=== PATIENT | female | born 1975 | race Caucasian/White ===

== ENCOUNTER → 2021-01-18 16:50 | Outpatient (BNVA) | payer OTHER, SELFPAY | PROVIDERS: Visit Provider Emergency Medicine | DX: J02.9 Acute pharyngitis, unspecified (principal); J06.9 Acute upper respiratory infection, unspecified; Z20.818 Contact with and (suspected) exposure to other bacterial communicable diseases | CPT/HCPCS: 87071; 87880 ==

== ENCOUNTER → 2021-01-19 12:12 | Outpatient (BNVA) | payer OTHER, SELFPAY | PROVIDERS: Visit Provider Emergency Medicine | DX: Z20.822 Contact with and (suspected) exposure to COVID-19 (principal) | CPT/HCPCS: 87635 ==

== ENCOUNTER 2024-08-27 14:12 | Oncology outpatient (recurring) (ONCR) | payer OTHER, SELFPAY ==
[2024-08-17 09:08] LABS: Basophils # 0.1 10^3/uL (0.0-0.1); Basophils % 0.7 %; Eosinophils # 0.2 10^3/uL (0.0-0.8); Eosinophils % 2.2 %; Hematocrit 34.8 % (36-47); Lymphocytes # 2.8 10^3/uL (0.8-4.8); Lymphocytes % 37.7 %; Mean Corpuscular HGB Conc 34.2 g/dL (30-55); Mean Corpuscular Hemoglobin 29.1 pg (27-33); Mean Corpuscular Volume 85.1 fl (85-98); Mean Platelet Volume 8.4 fL (7.4-10.4); Monocytes # 0.5 10^3/uL (0.2-0.9); Monocytes % 6.3 %; Neutrophils # 3.89 10^3/uL (1.8-7.7); Neutrophils % 52.8 %; Nucleated Red Blood Cells % 0 %; Platelet Count 274 10^3/cmm (157-399); Red Blood Count 4.09 10^6/uL (3.85-5.65); Red Cell Distribution Width 13.4 % (12.1-15.1); White Blood Count 7.35 10^3/uL (3.29-11.43)
[2024-08-17 09:30] LABS: Alanine Aminotransferase 18 U/L (0-33); Alkaline Phosphatase 87 U/L (35-105); Anion Gap 17.4 (5-19); Aspartate Amino Transferase 17 U/L (0-32); Blood Urea Nitrogen 12 mg/dL (6-20); Calcium 10.7 mg/dL (8.5-10.5); Carbon Dioxide 22 mmol/L (22-29); Chloride 98 mmol/L (98-107); Creatinine Clr Calc Pharmacy 247.3607; Globulin 2.6 g/dL (1.3-4.6); Glomerular Filtration Rate 170.4 mL/min (90-130); Glucose 210 mg/dL (65-115); Lactate Dehydrogenase 95 U/L (135-214); Osmolality Calculated 282 mOsm/kg (285-295); Potassium 4.4 mmol/L (3.5-5.1); Sodium 133 mmol/L (136-145); Total Bilirubin 0.4 mg/dL (0.15-1.2); Total Protein 6.6 g/dL (6.6-8.7); Uric Acid 7.4 mg/dL (2.4-5.7)
--- NOTE | 2024-08-21 11:30 | PETR_ITS ---
PROCEDURE INFORMATION: Exam: PET/CT Whole Body Exam date and time: 08/21/2024 12:26 PM Age: 49 years old Clinical indication: Condition or disease; Primary cancer: Melanoma; Additional info: Melanoma, Dr. Gooden would like this done by 08/21/24 LABS AND CLINICAL REPORTS: Glucose: 158 mg/dl Treatment strategy for malignancy (PET staging): Initial Staging (PI) TECHNIQUE: Imaging protocol: Following at least four-hour fasting and following the injection of radiopharmaceutical, low dose CT images were obtained. Then, PET images were obtained. Attenuation corrected images were constructed using the CT scan. Fused images of PET and CT were reviewed. The standardized uptake values (SUV) reported below are maximum values within a region of interest, expressed in gm/ml. Exam includes the whole body. SUV normalization method: BodyWeight Radiopharmaceutical: 12 mCi F-18 FDG (Fluorodeoxyglucose), IV. Time of imaging post radiopharmaceutical administration: 58 minutes Injection site: left ac COMPARISON: No relevant prior studies available. FINDINGS: Brain: Visualized brain has normal physiologic uptake. Pharynx: No abnormal uptake. Larynx: No abnormal uptake. Lungs, pleura and trachea: No abnormal uptake. Heart: Normal physiologic uptake. Mediastinal space: No abnormal uptake. Liver: No abnormal uptake. Enlarged, measuring 28 cm in craniocaudal dimension. Mild relative diffuse hypoattenuation with subtle sparing adjacent to the gallbladder fossa. Gallbladder and biliary ducts: No abnormal uptake. Prior cholecystectomy. Pancreas: No abnormal uptake. Spleen: No abnormal uptake. Splenomegaly measures up to 15 cm. Adrenal glands: No abnormal uptake. Kidneys and ureters: Normal physiologic uptake. Stomach and bowel: Diffuse FDG uptake along the ileum and ascending colon without underlying CT abnormality is likely benign physiologic or inflammatory. There is also FDG avid segmental thickening along the anus and rectum. Reproductive: Left ovary/adnexa appears asymmetrically enlarged (non FDG avid), although difficult to distinguish from closely apposed adjacent small bowel which is also non FDG avid. Vasculature: No abnormal uptake. Mild systemic atherosclerotic calcification without aortic aneurysm. Mild pulmonary arterial dilatation. Venous varicosities along bilateral thighs. Lymph nodes: Enlarged FDG avid right inguinal lymph node measures 4.5 x 3.3 cm on axial image 289 and shows SUV max 19.7. Skeleton: No suspicious abnormal uptake in the visualized axial and appendicular skeleton. Mild left glenohumeral joint periarticular uptake is likely inflammatory. Soft tissues: Mild body wall edema. Bilateral lower extremity subcutaneous edema greatest at the lateral lower right calf. METRICS: Mediastinal blood pool: SUV mean 1.4 Liver uptake: SUV mean 2.1 PET/PET WB melanoma INITIAL 60726 IMPRESSION: 1. FDG avid enlarged right inguinal lymph node suspicious for malignancy. 2. Hepatosplenomegaly with suggested hepatic steatosis. Correlate with laboratory values. 3. FDG avid segmental thickening along the anus and rectum. This could be physiologic or proctitis, malignancy not excluded. 4. Left ovary/adnexa appears asymmetrically enlarged (non FDG avid), although difficult to be entirely certain given inability to distinguish from closely apposed adjacent small bowel which is also non FDG avid. Consider pelvic ultrasound. 5. Mild pulmonary arterial dilatation may be seen in the setting of pulmonary hypertension. 6. Additional chronic and incidental findings as above.
== END 2024-09-02 23:59 | disposition home or self-care (01) ==
PROVIDERS: PCP Nurse Practitioner Family; Visit Provider Internal Medicine
DX: Z53.9 Procedure and treatment not carried out, unspecified reason (principal)
CPT/HCPCS: 36415; 78816; 80053; 83615; 84550; 85025; A9552

== ENCOUNTER 2024-09-10 05:57 | Day surgery (SDC) | payer OTHER, SELFPAY ==
[2024-09-10] VITALS (11 sets, daily range): BP systolic 139–160; BP diastolic 62–84; PULSE 72–85; RESP 16–18; TEMP 36.3–36.9; O2SAT 92–97; BMI 48.6
--- NOTE | 2024-09-10 06:03 | P.ANESASSM_ITS ---
Pre-Anesthetic Assessment Height/Weight: Height 5 ft 6 in Preop Diagnosis: Malignant melanoma Operation Date: 09/10/24 07:00 Proposed Procedures p wide local excision right leg melanoma [id number], 48356, C43.71(Right) - Lexx Stanton MD s Excision Lymph Node Lower Extremity Inguinal Lymph Node Dissection(Right) - Lexx Stanton MD Was Beta Sapna taken within 24 hours: Yes Was Clonidine taken within 24 hours: N/A Social No alcohol and No tobacco Exam alert, oriented x 3, clear to auscultation bilaterally and regular rate & rhythm Airway Cervical ROM: within normal limits Mallampati: Class III Comments: Comments: Patient is edentulous, large neck circumference Anesthetic Plan ASA status: 3 Anesthesia: General Other: No prior issues with anesthesia NPO since yesterday evening Patient has a history of type 2 diabetes, no insulin BMI 48 Hypertension on labetalol Patient has malignant melanoma. Hepatosplenomegaly noted on PET/CT scan last m [facility] Labs reviewed from and acceptable for procedure. NA 133 at that time. Plan for general anesthesia Medications/Allergies Home Medications ?Medication ?Instructions ?Recorded ?Confirmed ?Last Taken ?Type metformin 1,000 mg tablet 1,000 mg PO BID 06/11/2012/2809/08/24 11:30 History glimepiride 4 mg tablet 4 mg PO DAILY 01/18/2109/1009/08/24 11:30 History labetalol 100 mg tablet 100 mg PO BID 01/18/2109/1009/10/24 04:00 History mupirocin 2 % topical ointment topical 08/17/2409/08/24 11:30 History simvastatin 40 mg tablet mg PO 08/17/24 08/31/2410/28 11:30 History Allergies Allergy/AdvReac Type Severity Reaction Status Date / Time No Known Allergies Allergy Verified 09/10/24 06:07 [facility] Anesthesia Medical History Hypertension Type 2 diabetes mellitus Family History Sister Breast cancer FH: kidney cancer Skin cancer Thyroid cancer Stroke Father Cancer kidney Mother Leukemia Social History (Updated 08/31/24 @ 10:48 by EVER Mars) Alcohol intake: never Substance/Drug Use: never Female Reproductive History Date of last menstrual period: 09/04/24
[2024-09-10 06:22] LABS: Glucose Point of Care 215 mg/dL (70-110)
[2024-09-10] MEDS: sodium chloride 0.9% 1,000 ML 30 ML IV (06:24)
[2024-09-10 06:28] LABS: OR HCG Qualitative Urine Negative (Negative)
--- NOTE | 2024-09-10 07:04 | P.HPUD_ITS ---
Surgery/Procedure H&P Update DATE OF PROCEDURE: September 10, 2024 DATE H&P PERFORMED: 08/31/24 H&P UPDATE INFORMATION: I have reviewed H&P completed within last 30 days, I have examined patient prior to procedure and Changes to prior documentation as noted here CHANGES TO PREVIOUS DOCUMENTATION: Right ankle cellulitis noticed on Saturday. Per patient no change since then. Patient still wants to proceed with surgery with the understanding this i ncreases her risk of surgical site infection. Will prescribe 7 days of antibiotics after surgery. PREOP DIAGNOSIS: Malignant melanoma PLANNED PROCEDURE: Operation Date: 09/10/24 07:00 Proposed Procedures p wide local excision right leg melanoma [id number], 35659, C43.71(Right) - Lexx Stanton MD s Excision Lymph Node Lower Extremity Inguinal Lymph Node Dissection(Right) - Lexx Stanton MD
[2024-09-10] MEDS: ceFAZolin 3,000 MG in sodium chloride 0.9% (plus) 100 ML 200 MG IV (07:07)
[2024-09-10] MEDS: lidocaine-epi 1% 20 mL INJ 6 ML INJECTION (07:45)
[2024-09-10] MEDS: BUPivacaine 0.5% INJ 30 mL 6 ML INJECTION (07:45)
--- NOTE | 2024-09-10 08:47 | XR_ITS ---
WS: [id number] XR femur RT 1V [id number] REASON FOR EXAM: SURGICAL COUNTS FINDINGS: Surgical drain overlies the proximal right femur. No metallic foreign body identified. XR/XR femur RT 1V [id number] IMPRESSION: No metallic foreign body.
--- NOTE | 2024-09-10 09:06 | P.BOP_ITS ---
Date of Procedure: 09/10/2024 Surgeon: Dr. [facility] Consultant(s): DAMIAN Procedure(s) performed: wide local excision of right calf melanoma down to fascial layer with 1cm margins, inguinal lymph node dissection (superficial and deep). Findings of the procedure(s): 09/21/2019 Estimated blood loss: 50cc Specimen(s) removed: right calf melanoma (status post shave biopsy) wide local excision, right inguinal lymph nodes sent to pathology Post-operative diagnosis: melanoma
--- NOTE | 2024-09-10 09:16 | PM.OP ---
Operative Report Date of procedure: September 10, 2024 Pre-op diagnosis: Right calf melanoma (10mm Breslow thickness with ulceration) status post shave biopsy. Post-op diagnosis: same Post-op findings: Wide local excision of right calf melanoma down to fascial layer with 1cm margins, inguinal lymph node dissection (superficial and deep). Multiple enlarged and indurated inguinal lymph nodes. Procedure done: Wide local excision of right calf melanoma down to fascial layer with 1cm margins, inguinal lymph node dissection (superficial and deep). Implants: NA Specimens removed/disposition: Wide local excision of right calf melanoma down to fascial layer with 1cm margins, inguinal lymph node dissection (superficial and deep). Pathology: Wide local excision of right calf melanoma down to fascial layer with 1cm margins, inguinal lymph node dissection (superficial and deep). Both sent to pathology. Surgeon: Lexx Stanton MD Bank Manager: DAMIAN Anesthesia: MAC Estimated blood loss (mL): 50 Complications: NA Findings: Wide local excision of right calf melanoma down to fascial layer with 1cm margins, inguinal lymph node dissection (superficial and deep). Multiple enlarged and indurated inguinal lymph nodes. Condition: stable Disposition: same day Brief History: 49 yo female who had a right calf melanoma managed by Dermatology with shave biopsy. Pathology demonstrated a 10mm Breslow thickness melanoma with ulceration. On exam, patient has clinically indurated right inguinal lymph nodes FDG avid on PET scan. Discussed risks and benefits and patient agree to proceed to the operating room for wide local excision of right calf melanoma and right inguinal lymph node dissection. Procedure: Consent obtained in the preop area. Right calf lesion and right inguinal nodes marked in preop area with patient's input. Patient brought to OR. Prophylactic antibiotics were administered. MAC induced. Patient positioned supine. The entire right lower extremity and groin was prepped and draped in the usual sterile fashion. To perform the wide local excision, the patient's right knee was flexed in frog leg position. I measured and marked 1cm margins radially at the site of the shave biopsy. Skin was incised using a scalpel. Infiltration using 10cc of 1% lidocaine and 0.5% bupivacaine with epinephrine was done. Electrocautery was used to dissect down to the fascial layer. The specimen was then resected and passed off to be sent to pathology. Electrocautery was used to obtain adequate hemostasis. Roger's layer was closed using interruped 3-0 vicryl. Deep dermal layer was closed using 2-0 vicryl in a running fashion. Multiple 2-0 nylon sutures in vertical mattress fashion were placed to close the epidermis. The knee was then straightened and my attention focused on the groin. Infiltration using 10cc of 1% lidocaine and 0.5% bupivacaine with epinephrine was done. A 6cm vertical incision 4cm distal to the inguinal ligament was carried out with a scalpel. Electrocautery was used to dissect down to the Roger's fascia. Roger's was transected and I proceeded to excise any palpable lymph node along the inguinal ligament. I dissected down to the indurated pack of nodes located right at the junction between the right common femoral vein and the saphenous vein. I was able to dissect out the pack of indurated nodes using electrocautery. I also inspected the space medial to the right common femoral vein and excised all palpable nodes. The specimen for the right inguinal lymph node dissection was then passed off and sent to pathology. I then washed out the wound using 1L NS and confirmed adequate hemostasis. Roger's fascia was closed using running 3-0 vicryl on top of a 10F Thiago drain. Deep dermal layer was closed using 2-0 vicryl in a running fashion. Epidermis was closed using 2-0 nylon in a vertical mattress fashion as well as multiple simple stitches. A sterile dressing was applied to the right groin and the right calf.
[2024-09-10] MEDS: ondansetron 2 mg/ML SDV 2 mL 4 MG IVP (09:24)
[2024-09-10] MEDS: ondansetron 2 mg/ML SDV 2 mL 4 MG (09:57)
--- NOTE | 2024-09-10 11:02 | PC.NURSE ---
[place] drain verbal and written educations were given to pt.s daughter in law who is a tennis racket repairer. [id number] then emptied 10ml of fluid from drain.
--- NOTE | 2024-09-10 11:13 | ANE.PACU2 ---
Inpatient post-anesthesia follow up: Airway intact: Yes Vital signs: Temperature 98.4 F Pulse Rate 81 Respiratory Rate 17 Blood Pressure 139/63 Pulse Oximetry 95 Oxygen Delivery Me thod Nasal Cannula Oxygen Flow Rate 2 Fraction of Inspir ed Oxygen Hydration adequate: Yes Nausea and vomiting: No Pain level: 1 Mental status: Baseline
== END 2024-09-10 11:14 | disposition home or self-care (01) ==
PROVIDERS: Student in an Organized Health Care Education/Training Program; PCP Nurse Practitioner Family; Visit Provider Student in an Organized Health Care Education/Training Program
PROC: (CPT 38531; principal; 2024-09-10 07:00)
PROC: (CPT 38531; 2024-09-10 07:00)
DX: C43.71 Malignant melanoma of right lower limb, including hip (principal); C77.4 Secondary and unspecified malignant neoplasm of inguinal and lower limb lymph nodes; I10 Essential (primary) hypertension; E11.9 Type 2 diabetes mellitus without complications; Z79.899 Other long term (current) drug therapy; Z79.84 Long term (current) use of oral hypoglycemic drugs
CPT/HCPCS: 38531; 27619; 36416; 73551; 74018; 81025; 82962; 88184; 88185; 88304; 88305; 88342; J0690; J1100; J2250; J2405; J2704; J3010; J3490; J7030; J9999

== ENCOUNTER 2024-09-19 12:59 | Emergency (ER) | payer OTHER, SELFPAY ==
[2024-09-19 13:11] VITALS: BP 143/72; PULSE 86; RESP 16; TEMP 36.6; O2SAT 97; BMI 49.9
--- NOTE | 2024-09-19 15:14 | W.ED.GENADLT ---
HPI - General Adult General: Chief complaint: General Medical Stated complaint: [place] drain leaking Time Seen by Provider: 09/19/24 14:45 History of Present Illness: 49-year-old female presents to the emergency room with leakage around the drain that was placed in the groin after a inguinal lymph node dissection. Original surgery was done on September 10 9 days ago. Drain had been draining well until recently now is draining around the drain. Associated symptoms: Deny chest pain, dyspnea or rash Related Data Home Medications ?Medication ?Instructions ?Recorded ?Confirmed metformin 1,000 mg tablet 1,000 mg PO BID 06/11/20 09/19/24 glimepiride 4 mg tablet 4 mg PO DAILY 01/18/21 09/19/24 labetalol 100 mg tablet 100 mg PO BID 01/18/21 09/19/24 simvastatin 40 mg tablet 40 mg PO DAILY 08/17/24 09/19/24 acetaminophen 500 mg tablet 1,000 mg PO QID PRN Fever Or Pain 09/19/24 09/19/24 (Tylenol Extra Strength) ibuprofen 200 mg tablet (Advil) 600 mg PO Q6H PRN Fever Or Pain 09/19/24 09/19/24 mupirocin 2 % topical ointment See Rx Instructions .Route .COMPLEX 09/19/24 09/19/24 Allergies Allergy/AdvReac Type Severity Reaction Status Date / Time No Known Allergies Allergy Verified 09/10/24 06:07 Review of Systems Const: Denies: fever(s) or chills Card: Denies: chest pain Resp: Denies: dyspnea GI: Denies: abdominal pain : Denies: dysuria, urinary frequency or urinary urgency Musc: Denies: neck pain or back pain Skin/Breast: Denies: rash PFSH ED PFSH: Medical History Hypertension Type 2 diabetes mellitus Family History Sister Breast cancer FH: kidney cancer Skin cancer Thyroid cancer Stroke Father Cancer kidney Mother Leukemia Social History Alcohol intake: never Substance/Drug Use: never Physical Exam Const: GENERAL APPEARANCE: cooperative ORIENTATION/CONSCIOUSNESS: Yes awake, Yes oriented to person, Yes oriented to place and Yes oriented to time HENMT: COMMON NORMALS: normocephalic, atraumatic and hearing grossly normal bilaterally HEAD & SCALP: normocephalic and atraumatic GI: COMMON NORMALS: Soft to palpation and No hepatosplenomegaly present AUSCULTATION: Yes normoactive bowel sounds PALPATION: Yes Soft to palpation, No Tenderness to palpation present (GI), No Guarding due to palpation present (GI) and Yes No hepatosplenomegaly present Extremity: COMMON NORMALS: normal to inspection, capillary refill normal, no clubbing, cyanosis or edema, no calf tenderness and no pedal edema Neuro: SENSORIUM/ORIENTATION: Yes oriented to person, Yes oriented to place and Yes oriented to time Skin: COMMON NORMALS: no rashes or lesions noted GENERAL SKIN EXAM: no rashes or lesions noted OTHER: Incision site behind the knee and incision site in the groin both look good there is some minimal localized erythema but there is no sign of dehiscence no sign of induration or infection. Drainage in the [place] drain has significant amount of debris in it and serous fluid. Course Vital Signs: Vital signs: Vital Signs Temperature 97.9 F 09/19/24 13:11 Pulse Rate 89 09/19/24 16:18 Respiratory Rate 16 09/19/24 13:11 Blood Pressure 144/81 09/19/24 16:18 Pulse Oximetry 97 09/19/24 16:18 Oxygen Delivery Me thod Room Air 09/19/24 13:11 MDM - General Adult Medical Decision Making Quite a bit of debris in the tube exterior to the skin we stripped it out and got a sizable amount out however there is even more right at the entrance of the tube into the skin. Drains been in place for 9 days now basically she is plugging up with cellular debris we tried to suction it with a syringe were able to get a little bit more debris out of the fenestrated portion of the tube to where we could see it externally but could not get it to move got a little bit more of the serous fluid out there is no signs of purulence. The wound itself looked very good. Discussion with the patient we can leave it in place it still will drain some but suspect the reason it is leaking around the tube is that drain is no longer able to keep up with the serous fluid that is being produced. If we leave it and she will still have some serous drainage from around the tube the other option would be to just simply remove it. It is no longer functioning it has been in for 9 days is likely to continue to worsen. If it is removed it would drain more but least it would keep the fluid from building up inside of the surgical site. After we discussed with her and her daughter patient opted to have us remove it sutures removed the drain was pulled without any difficulty there was quite a bit of debris in the fenestrated portion of the drain. Some serosanguineous drainage from the wound immediately after pulling it. ABD was applied to absorb any drainage discussed with the family that whenever she moves she is likely to intermittently get significant amounts of fluid that will come out at 1 time rather than a continuous slow drainage. Follow-up with Dr. Stanton as planned. No radiology studies performed this visit Discharge Plan Discharge Patient Disposition: Home Clinical Impression: Draining postoperative wound Melanoma Qualifiers: Melanoma location: lower extremity including hip Laterality: right Qualified Code(s): C43.71 - Malignant melanoma of right lower limb, including hip Condition: Stable Prescriptions: No Action metformin 1,000 mg tablet 1,000 mg PO BID labetalol 100 mg tablet 100 mg PO BID glimepiride 4 mg tablet 4 mg PO DAILY simvastatin 40 mg tablet 40 mg PO DAILY mupirocin 2 % ointment See Rx Instructions .ROUTE .COMPLEX Rx Instructions: APPLY TOPICALLY TO AFFECTED AREA ON RIGHT LEG 1 TO 2 TIMES DAILY UNTIL HEALED acetaminophen [Tylenol Extra Strength] 500 mg Tablet 1,000 mg PO QID PRN (Reason: Fever Or Pain) ibuprofen [Advil] 200 mg Tablet 600 mg PO Q6H PRN (Reason: Fever Or Pain) Discharge Orders: Discharge ED (Routine); Ordered 09/19/24 Ordered By: Joe Barnard Referrals: Guera Hawk FNP [Primary Care Provider, Nurse Practitioner] Patient Instructions: Opioid Safety, Pain Management Activity Restrictions/Additional Instructions: Thank you for choosing [facility] for your healthcare needs today. It is very important that you follow up as instructed or that you return to the Emergency Department should you have concerns or if your condition changes or worsens in any way. You were seen in the emergency room with complaints of drainage from around the surgical site [place] drain. As we discussed the drain was clogged we made several attempts to get it opened up however there was significant after bradycardia inside the fenestrated portion did not appear to be likely to drain well anymore. After discussion we you had opted to have us remove it which we did without difficulty and the wound looks very good. Expect the wound to continue to drain at the site where the surgical drain was removed. Keep your appointment with Dr. Stanton as scheduled. Return to the emergency room if you have signs of infection or fever. Print Language: Slovenian Coding Level of Care Code ED Felt Cutting Machine Operator for Gretel Mccormack
[2024-09-19 15:15] VITALS: BP 162/80; PULSE 84; O2SAT 97
[2024-09-19 15:30] VITALS: BP 146/84; PULSE 91; O2SAT 97
[2024-09-19 16:18] VITALS: BP 144/81; PULSE 89; O2SAT 97
== END 2024-09-19 16:18 | disposition home or self-care (01) ==
PROVIDERS: Emergency Provider Family Medicine; PCP Nurse Practitioner Family
DX: T85.638A Leakage of other specified internal prosthetic devices, implants and grafts, initial encounter (principal); C43.71 Malignant melanoma of right lower limb, including hip; Z79.84 Long term (current) use of oral hypoglycemic drugs; E11.9 Type 2 diabetes mellitus without complications; I10 Essential (primary) hypertension; X58.XXXA Exposure to other specified factors, initial encounter
CPT/HCPCS: 99283

== ENCOUNTER 2024-10-01 13:05 | Oncology outpatient (recurring) (ONCR) | payer OTHER, SELFPAY ==
--- NOTE | 2024-09-16 08:30 | US_ITS ---
WS: [id number] US pelvic complete* [id number] HISTORY: left ovary mass COMPARISON: PET/CT 08/21/2024. Extremely limited evaluation of the pelvic structures due to body habitus. Uterus: 11.4 cm x 5.0 cm x 6.0 cm. Uterus appears slightly enlarged. Best seen on the transabdominal imaging. Very little detail within the myometrium is evident. There is a small amount of fluid along the cervical canal. Endometrium: 1.1 cm. Poorly visualized. Neither ovary is identified. No free fluid in the cul-de-sac. US/US pelvic complete* [id number] IMPRESSION: 1. Extremely difficult ultrasound evaluation of the pelvic structures. 2. Neither ovary is identified. 3. Endometrium not well visualized.
[2024-10-01 14:28] LABS: Basophils # 0.1 10^3/uL (0.0-0.1); Basophils % 0.6 %; Eosinophils # 0.2 10^3/uL (0.0-0.8); Eosinophils % 2.8 %; Hematocrit 34.8 % (36-47); Lymphocytes # 2.9 10^3/uL (0.8-4.8); Lymphocytes % 33.6 %; Mean Corpuscular HGB Conc 33.3 g/dL (30-55); Mean Corpuscular Hemoglobin 27.8 pg (27-33); Mean Corpuscular Volume 83.3 fl (85-98); Mean Platelet Volume 8.6 fL (7.4-10.4); Monocytes # 0.5 10^3/uL (0.2-0.9); Monocytes % 5.7 %; Neutrophils # 4.83 10^3/uL (1.8-7.7); Neutrophils % 56.9 %; Nucleated Red Blood Cells % 0 %; Platelet Count 300 10^3/cmm (157-399); Red Blood Count 4.18 10^6/uL (3.85-5.65); Red Cell Distribution Width 14.2 % (12.1-15.1); White Blood Count 8.48 10^3/uL (3.29-11.43)
[2024-10-01 14:44] LABS: Alanine Aminotransferase 14 U/L (0-33); Albumin Level 3.9 g/dL (3.5-5.2); Alkaline Phosphatase 95 U/L (35-105); Anion Gap 19.1 (5-19); Aspartate Amino Transferase 14 U/L (0-32); Blood Urea Nitrogen 11 mg/dL (6-20); Calcium 10.9 mg/dL (8.5-10.5); Carbon Dioxide 20 mmol/L (22-29); Chloride 98 mmol/L (98-107); Creatinine Clr Calc Pharmacy 194.4973; Glomerular Filtration Rate 131.7 mL/min (90-130); Glucose 208 mg/dL (65-115); Lactate Dehydrogenase 96 U/L (135-214); Magnesium 1.3 mg/dL (1.7-2.3); Osmolality Calculated 281 mOsm/kg (285-295); Potassium 4.1 mmol/L (3.5-5.1); Sodium 133 mmol/L (136-145); Total Bilirubin 0.3 mg/dL (0.15-1.2); Total Protein 6.9 g/dL (6.6-8.7); Uric Acid 6.5 mg/dL (2.4-5.7)
== END 2024-10-03 23:59 | disposition home or self-care (01) ==
PROVIDERS: PCP Nurse Practitioner Family; Visit Provider Internal Medicine
DX: C43.71 Malignant melanoma of right lower limb, including hip (principal)
CPT/HCPCS: 36415; 76856; 80053; 83615; 83735; 84550; 85025

== ENCOUNTER 2024-10-03 10:47 | Emergency (ER) | payer OTHER, SELFPAY ==
[2024-10-03 11:03] VITALS: BP 164/78; PULSE 91; RESP 18; TEMP 36.8; O2SAT 94
--- NOTE | 2024-10-03 11:15 | USR_ITS ---
PROCEDURE INFORMATION: Exam: US Duplex Right Lower Extremity Veins, Limited Exam date and time: 10/03/2024 12:26 PM Age: 49 years old Clinical indication: Pain; Leg, upper and leg, lower; Right; Prior surgery; Surgery date: <1 month; Surgery type: Skin cancer removal; Additional info: Pain, swelling TECHNIQUE: Imaging protocol: Real-time duplex ultrasound of the right extremity with 2-D estrada scale, color Doppler flow and spectral waveform analysis including responses to compression and other maneuvers (when performed) with image documentation. Limited exam was focused on the right lower extremity veins. COMPARISON: PT PET WB melanoma INITIAL [id number] 08/21/2024 12:26 PM FINDINGS: Right deep veins: Unremarkable. The common femoral, femoral, proximal profunda femoral and popliteal veins are patent without thrombus. Normal Doppler waveforms. Normal compressibility and/or augmentation response. Superficial veins: Greater saphenous vein at the saphenofemoral junction is patent without thrombus. Soft tissues: Complex collection with internal septations in the superior right thigh at the area of palpable lump measuring 6.7 x 4.1 x 6.4 cm. A similar-appearing complex collection with internal echoes is seen in the popliteal fossa at a surgical site which measures 5.8 x 4.9 x 5.0 cm. US/[place] [id number] IMPRESSION: 1. No evidence of deep vein thrombosis. 2. Complex collections in the superior right thigh and along the popliteal fossa may represent postsurgical hematomas. Consider short interval imaging follow-up to document improvement/resolution.
[2024-10-03 11:34] LABS: Basophils % 0.4 %; Eosinophils # 0.2 10^3/uL (0.0-0.8); Eosinophils % 2.3 %; Hematocrit 33.3 % (36-47); Lymphocytes # 1.7 10^3/uL (0.8-4.8); Lymphocytes % 18.5 %; Mean Corpuscular HGB Conc 34.2 g/dL (30-55); Mean Corpuscular Hemoglobin 27.7 pg (27-33); Mean Platelet Volume 8.8 fL (7.4-10.4); Monocytes # 0.7 10^3/uL (0.2-0.9); Monocytes % 7.7 %; Neutrophils % 70.8 %; Nucleated Red Blood Cells % 0 %; Platelet Count 274 10^3/cmm (157-399); Red Blood Count 4.11 10^6/uL (3.85-5.65); White Blood Count 9.33 10^3/uL (3.29-11.43)
[2024-10-03 11:53] LABS: Anion Gap 17.7 (5-19); Blood Urea Nitrogen 11 mg/dL (6-20); Calcium 10.6 mg/dL (8.5-10.5); Carbon Dioxide 23 mmol/L (22-29); Chloride 96 mmol/L (98-107); Glomerular Filtration Rate 131.7 mL/min (90-130); Glucose 328 mg/dL (65-115); Osmolality Calculated 286 mOsm/kg (285-295); Potassium 4.7 mmol/L (3.5-5.1); Sodium 132 mmol/L (136-145)
--- NOTE | 2024-10-03 13:09 | W.ED.EXTPRO ---
HPI - Extremity Problem General: Chief complaint: Extremity Problem,Nontraumatic Stated complaint: right knee incision drainage and pain Time Seen by Provider: 10/03/24 11:04 History of Present Illness: This patient is a 49-year-old white female who presents to the emergency department concerned about pain and swelling of post surgical sites on her right leg. Patient states she was diagnosed with melanoma stage III. She had the lesion removed from the right popliteal area on September [address] Stanton. She also had a lymph node resection in the right groin. She has noticed the popliteal wound has become red and draining clear fluid. She has not had a fever. No chest pain. Some mild dyspnea on exertion. She does have a history of [id number] diabetes, hypertension and hypercholesterolemia. She is concerned about diffuse swelling of the right leg as well. Related Data Home Medications ?Medication ?Instructions ?Recorded ?Confirmed metformin 1,000 mg tablet 1,000 mg PO BID 06/11/20 10/01/24 glimepiride 4 mg tablet 4 mg PO DAILY 01/18/21 10/01/24 labetalol 100 mg tablet 100 mg PO BID 01/18/21 10/01/24 simvastatin 40 mg tablet 40 mg PO DAILY 08/17/24 10/01/24 acetaminophen 500 mg tablet 1,000 mg PO QID PRN Fever Or Pain 09/19/24 10/01/24 (Tylenol Extra Strength) ibuprofen 200 mg tablet (Advil) 600 mg PO Q6H PRN Fever Or Pain 09/19/24 10/01/24 mupirocin 2 % topical ointment See Rx Instructions .Route .COMPLEX 09/19/24 10/01/24 oxycodone 5 mg tablet mg PO PRN 10/01/24 10/01/24 Previous Rx's ?Medication ?Instructions ?Recorded dabrafenib 75 mg capsule 150 mg (2 x 75 mg) PO BID #120 caps 10/01/24 trametinib 2 mg tablet (Mekinist) 2 mg PO DAILY #30 tabs 10/01/24 cephalexin 500 mg capsule 500 mg PO TID 10 days #30 caps 10/03/24 Allergies Allergy/AdvReac Type Severity Reaction Status Date / Time No Known Allergies Allergy Verified 10/01/24 13:11 Review of Systems General: Reports: 10 or more systems reviewed and unremarkable except in HPI and below Musc: Reports: extremity pain and extremity swelling PFSH ED PFSH: Medical History Hypertension Type 2 diabetes mellitus Family History Sister Breast cancer FH: kidney cancer Skin cancer Thyroid cancer Stroke Father Cancer kidney Mother Leukemia Social History Smoking and tobacco/nicotine status: never used tobacco/nicotine Alcohol intake: never Substance/Drug Use: never Physical Exam Const: COMMON NORMALS: no acute distress, patient oriented x3 and no limitations GENERAL APPEARANCE: cooperative and comfortable HENMT: COMMON NORMALS: normocephalic, atraumatic, Normal nasal mucous membranes and turbinates present, moist oral mucous membranes and oropharynx normal HEAD & SCALP: normal to inspection, normocephalic and atraumatic FACE & SINUS: normal facial exam NOSE: Normal nasal mucous membranes and turbinates present Eye: COMMON NORMALS: Equal, round and reactive pupils present, EOMs intact bilaterally and conjunctivae normal GENERAL EYE: appearance normal, both eyes and all related structures CONJUNCTIVA: Yes conjunctivae normal PUPIL: Yes Equal, round and reactive pupils present Neck/C-Spine: COMMON NORMALS: supple and no JVD Chest: COMMONS NORMALS: normal inspection of the chest Resp: COMMON NORMALS: normal respiratory effort and clear to auscultation bilaterally AUSCULTATION: clear to auscultation bilaterally Cardio: COMMON NORMALS: no JVD, regular rate, regular rhythm, No gallops present (Cardio), No murmurs present (Cardio) and No rub (Cardio) RATE: regular rate RHYTHM: regular rhythm GI: COMMON NORMALS: Normal to inspection, nondistended, normoactive bowel sounds present, Soft to palpation and non-tender AUSCULTATION: Yes normoactive bowel sounds PALPATION: Yes Soft to palpation : COMMON NORMALS: Yes no CVA tenderness BLADDER/KIDNEY EXAM: Yes no CVA tenderness Back/Pelvis: COMMON NORMALS: no CVA tenderness and thoracic and lumbar spine normal to inspection Extremity: NARRATIVE EXTREMITY EXAM: There is a surgical wound with sutures intact in the right popliteal fossa. The wound is erythematous. No drainage at this time. Neuro: COMMON NORMALS: patient oriented x3 and CN's II-XII intact bilaterally Psych: COMMON NORMALS: mental status grossly normal, Normal thought process present and cooperative THOUGHT PROCESS: Normal thought process present Skin: COMMON NORMALS: turgor normal and no jaundice GENERAL SKIN EXAM: turgor normal Course Vital Signs: Vital signs: Vital Signs Temperature 98.2 F 10/03/24 11:03 Pulse Rate 91 10/03/24 11:03 Respiratory Rate 18 10/03/24 11:03 Blood Pressure 164/78 10/03/24 11:03 Pulse Oximetry 94 10/03/24 11:03 Oxygen Delivery Me thod Room Air 10/03/24 11:03 MDM - Extremity (Nontraumatic) Medical Decision Making CBC was normal. BMP normal except for blood sugar of 328. Venous duplex of the right leg did not reveal a DVT. There are seromas present in the right popliteal and right groin. All results were discussed with the patient. I did place her on Keflex. Recommended she follow-up with her surgeon on Saturday as scheduled. She was discharged in stable condition. Lab Data 10/03/24 11:27 10/03/24 11:27 Laboratory Results WBC 9.33 10^3/uL (3.29-11.43) 10/03/24 11:27 RBC 4.11 10^6/uL (3.85-5.65) 10/03/24 11:27 Hgb 11.40 g/dL (11.27-16.99) 10/03/24 11:27 Hct 33.3 % (36-47) L 10/03/24 11:27 MCV 81.0 fl (85-98) L 10/03/24 11:27 MCH 27.7 pg (27-33) 10/03/24 11:27 MCHC 34.2 g/dL (30-55) 10/03/24 11:27 RDW 14.0 % (12.1-15.1) 10/03/24 11:27 Plt Count 274 10^3/cmm (157-399) 10/03/24 11:27 MPV 8.8 fL (7.4-10.4) 10/03/24 11:27 Neut % (Auto) 70.8 % 10/03/24 11:27 Lymph % (Auto) 18.5 % 10/03/24 11:27 Meeker % (Auto) 7.7 % 10/03/24 11:27 Eos % (Auto) 2.3 % 10/03/24 11:27 Baso % (Auto) 0.4 % 10/03/24 11:27 Neut # (Auto) 6.60 10^3/uL (1.8-7.7) 10/03/24 11:27 Lymph # (Auto) 1.7 10^3/uL (0.8-4.8) 10/03/24 11:27 Meeker # (Auto) 0.7 10^3/uL (0.2-0.9) 10/03/24 11:27 Eos # (Auto) 0.2 10^3/uL (0.0-0.8) 10/03/24 11:27 Baso # (Auto) 0.0 10^3/uL (0.0-0.1) 10/03/24 11:27 Nucleated RBC % (auto) 0 % 10/03/24 11:27 Nucleated RBCs # 0.0 /100WBC 10/03/24 11:27 Sodium 132 mmol/L (136-145) L 10/03/24 11:27 Potassium 4.7 mmol/L (3.5-5.1) 10/03/24 11:27 Chloride 96 mmol/L (98-107) L 10/03/24 11:27 Carbon Dioxide 23 mmol/L (22-29) 10/03/24 11:27 Anion Gap 17.7 (5-19) 10/03/24 11:27 BUN 11 mg/dL (6-20) 10/03/24 11:27 Creatinine 0.5 mg/dL (0.5-0.9) 10/03/24 11:27 GFR Calculation 131.7 mL/min (90-130) H 10/03/24 11:27 Glucose 328 mg/dL (65-115) H 10/03/24 11:27 Calculated Osmolality 286 mOsm/kg (285-295) 10/03/24 11:27 Calcium 10.6 mg/dL (8.5-10.5) H 10/03/24 11:27 All radiology interpretation(s) finalized by discharge Discharge Plan Discharge Patient Disposition: Home Clinical Impression: Seroma after procedure Cellulitis Qualifiers: Site of cellulitis: extremity Site of cellulitis of extremity: lower extremity Laterality: right Qualified Code(s): L03.115 - Cellulitis of right lower limb Condition: Stable Prescriptions: New cephalexin 500 mg capsule 500 mg PO TID 10 Days Qty: 30 0RF No Action metformin 1,000 mg tablet 1,000 mg PO BID labetalol 100 mg tablet 100 mg PO BID glimepiride 4 mg tablet 4 mg PO DAILY oxycodone 5 mg tablet PO PRN dabrafenib 75 mg capsule 150 mg PO BID Qty: 120 0RF Rx Instructions: administer approximately 12 hours apart Mekinist 2 mg tablet 2 mg PO DAILY Qty: 30 11RF Rx Instructions: must be taken on empty stomach, at least 1 hr before or 2-3 hrs after meal/food simvastatin 40 mg tablet 40 mg PO DAILY mupirocin 2 % ointment See Rx Instructions .ROUTE .COMPLEX Rx Instructions: APPLY TOPICALLY TO AFFECTED AREA ON RIGHT LEG 1 TO 2 TIMES DAILY UNTIL HEALED acetaminophen [Tylenol Extra Strength] 500 mg Tablet 1,000 mg PO QID PRN (Reason: Fever Or Pain) ibuprofen [Advil] 200 mg Tablet 600 mg PO Q6H PRN (Reason: Fever Or Pain) Discharge Orders: Discharge ED (Routine); Ordered 10/03/24 Ordered By: Jasper Patel Referrals: Guera Hawk FNP [Primary Care Provider, Nurse Practitioner] Patient Instructions: Wound Infection (ED) Activity Restrictions/Additional Instructions: Follow-up with your surgeon on Saturday as scheduled. Stand Alone Forms: Work/School Release Print Language: Georgian Coding Level of Care Code ED Platform Stapler for Gretel Mccormack
== END 2024-10-03 13:20 | disposition home or self-care (01) ==
PROVIDERS: Emergency Provider Emergency Medicine; PCP Nurse Practitioner Family
DX: L76.34 Postprocedural seroma of skin and subcutaneous tissue following other procedure (principal); L03.115 Cellulitis of right lower limb; E11.9 Type 2 diabetes mellitus without complications; I10 Essential (primary) hypertension; R60.0 Localized edema
CPT/HCPCS: 36415; 80048; 85025; 93971; 99284

== ENCOUNTER 2024-10-22 07:00 | Oncology outpatient (recurring) (ONCR) | payer SELFPAY ==
--- NOTE | 2024-10-12 15:50 | N.ONRAD NP_ITS ---
Radiation Oncology New Patient Visit Patient: Madeleine Gallagher MR#: [id number] : 1975 Age: 49 Sex: Female Dictated by: Dr. Ashutosh Calvert Date of Service: 10/12/2024 Referring Physician(s) : Diagnosis: St III ( T4b, N1b, M0) melaonoma of rht proximal right calf and inguinal region s/p bx 08/04/2024 followed by wide local excision and inguinal LN dissection 09/10/2024/ ! of 3 Lns involved with LISSY. Radiotherapy to date: Summary No prior radiation therapy. Chief Complaint / History of Present Illness: 08/2024 presented with 6 to 12 month hx of enlarging right proximal calf mass associated with bleeding. Saw derm. Shave bx 08/04/2024 melanoma extending close to inked margin. 10 mm invasion, Locke level IV, Breslow thickness 10 mm. PET/CT 08/21/[address] with significant uptake. No other regions suspicious for metastatic disease. Wide local excision 09/10/2024 No residual in calf resection specimen. [address] of [address] involved 6.5 cn in size with extracapsular extension. Post op cellulitis at calf resection . Now completing course of Keflex Genomic sequencing done. Adjuvant immunotherapy planned with dabrafenib and trametinib x 1 year. Current Medications: acetaminophen (Tylenol Extra Strength) 1,000 mg PO QID PRN glimepiride 4 mg PO DAILY ibuprofen (Advil) 600 mg PO Q6H PRN labetalol 100 mg PO BID metformin 1,000 mg PO BID mupirocin 2% APPLY TOPICALLY TO AFFECTED AREA ON RIGHT LEG 1 TO 2 TIMES DAILY UNTIL HEALED oxycodone mg PO PRN simvastatin 40 mg PO DAILY Allergies: No Known Allergies Allergy (Verified 10/01/24 13:11) Medical History: Hypertension, Type 2 diabetes mellitus. No history of collagen vascular disease. No previous radiation therapy. Surgical History: see above Family History: Sister Breast cancer FH: kidney cancer Skin cancer Thyroid cancer Stroke Father Cancer kidney Mother Leukemia Social History: one step son. 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 Smoking and tobacco/nicotine status: never used tobacco/nicotine Alcohol intake: never Substance/Drug Use: never Current Complaints / Review of Systems: . Vital Signs: Performed on 10/12/2024 1:53 PM BMI - 49.257 kg/m2 (high), Height - 65 in, Weight - 296 lbs, Temperature - 98.4 f, Pulse - 88 /min, Respiration - 18 /min, O2 Sat - 97 %, Pain - 0, Fatigue - 0 and BP - 160/ 83 mm(hg)(high/). Physical Exam: Obese. Edentulous. Right calf incision closed with some edema and erythema. Inguinal incision closed mild erythema. No pedal edema. Performance Status: ECOG PS 1 Pathology: see above Lab: none obtained. Imaging: See HPI Impression: High risk St III melanoma. At rsik for relapse in inguinal resection bed. We will integrate adjuvant hypo fractionated adjuvant resection bed treatment with planned immunotherapy. Plan to treat in two weeks between cycles of systemic treatment. Plan on 40 Gy in 10 fractions with fusion pre op PET/CT scan to aid in determine appropriate target volume. Discussed with patient and Dr. Vanessa. Plan: Signed by: 10/12/2024 3:49:20 PM <<Signature on File>> Time spent with patient: CPT Code: CPT Code:
--- NOTE | 2024-10-22 07:00 | USCV_ITS ---
Madeleine Gallagher Age: 49 Gender: F : 1975 Exam Date: 10/22/2024 07:05 Ordering Phys: Geovanni Gooden MD Technologist: Exam Location: [facility] – [place] Indication: high risk meds BP: 140 / 80 HR: 85 Rhythm: Sinus Technical Quality: Adequate MEASUREMENTS (Male / Female) Normal Values 2D ECHO LV Diastolic Diameter PLAX 4.1 cm 4.2 - 5.9 / 3.9 - 5.3 cm IVS Diastolic Thickness 1.2 cm 0.6 - 1.0 / 0.6 - 0.9 cm IVS Systolic Thickness 1.8 cm LVPW Diastolic Thickness 1.1 cm 0.6 - 1.0 / 0.6 - 0.9 cm LVPW Systolic Thickness 1.5 cm LVOT Diameter 2.0 cm LV Ejection Fraction 2D Teich 61.2 % LV Ejection Fraction MOD 4C 61.1 % LV Ejection Fraction MOD 2C 70.2 % LV Ejection Fraction 2C AL 69.1 % LA Diameter 4.2 cm RA Systolic Volume 4C AL 41.4 ml RA Systolic Volume 4C MOD 40.1 ml Aorta at Sinotubular Diameter 3.1 cm M-MODE LA Ao Ratio MM 1.3 MV E Point Septal Separation 1.7 cm AV Cusp Separation MM 2.2 cm DOPPLER AV Peak Velocity 201.7 cm/s AV Area Cont Eq vti 3.1 cm squared AV Area Cont Eq pk 2.6 cm squared MV Peak Velocity 125.0 cm/s MV Area PHT 5.5 cm squared Mitral E to A Ratio 0.8 TV Peak Velocity 268.5 cm/s TR Peak Velocity 274.0 cm/s TR Peak Gradient 30.0 mmHg TV Peak E Velocity 119.0 cm/s PV Peak Velocity 117.0 cm/s FINDINGS Left Ventricle Normal left ventricular size and systolic function, EF 70%. . Mild left ventricular hypertrophy. Grade I/IV diastolic dysfunction (abnormal relaxation filling pattern), normal to mildly elevated filling pressures. Right Ventricle The right ventricle is normal in size and function. Right Atrium The right atrium is normal in size. Left Atrium Mildly increased left atrial size. Mitral Valve Mild mitral annular calcification. Aortic Valve Aortic valve sclerosis. Tricuspid Valve Trace tricuspid valve regurgitation. Pulmonic Valve Mild pulmonary valve regurgitation. Pericardium No pericardial effusion. Aorta Normal aortic annulus size. IVC Inferior vena cava not visualized. CONCLUSIONS Normal left ventricular size and systolic function, EF 70%. . Mild left ventricular hypertrophy. Grade I/IV diastolic dysfunction (abnormal relaxation filling pattern), normal to mildly elevated filling pressures. Mildly increased left atrial size. Mild mitral annular calcification. Aortic valve sclerosis. Trace tricuspid valve regurgitation. Mild pulmonary valve regurgitation. Estimated pulmonary artery peak systolic pressure 33 mmHg There is no pericardial effusion. There are no intracardiac masses. No similar previous studies are available for comparison Dr Earline Cunningham MD [facility] (Electronically Signed) Final Date: 25 October 2024 13:34 S
== END 2024-11-02 23:59 | disposition home or self-care (01) ==
LOC: ONCMED 09:31
PROVIDERS: PCP Nurse Practitioner Family; Visit Provider Internal Medicine
DX: C43.71 Malignant melanoma of right lower limb, including hip; R93.1 Abnormal findings on diagnostic imaging of heart and coronary circulation; I51.7 Cardiomegaly; I34.81 Nonrheumatic mitral (valve) annulus calcification; I35.8 Other nonrheumatic aortic valve disorders; I37.1 Nonrheumatic pulmonary valve insufficiency; Z53.9 Procedure and treatment not carried out, unspecified reason
CPT/HCPCS: 77334; 93306

== ENCOUNTER 2024-12-02 09:30 | Oncology outpatient (recurring) (ONCR) | payer OTHER, SELFPAY ==
--- NOTE | 2024-11-10 11:11 | ONCRAD TMN_ITS ---
Radiation Oncology Weekly Treatment Management Patient: Madeleine Gallagher MR#: [id number] : 1975 Attending Physician: Dr. 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 ID: [id number], Energy: 6X, Dose/Fx (cGy): 400, #Fx: 2 / 10, Dose Correction (cGy): 0, Total Dose Delivered (cGy): 800, Start Date: 11/09/2024, Elapsed Days: 1 Reason for visit: The patient is being seen today as part of their regularly scheduled weekly on treatment visits to assess for acute toxicities from radiotherapy. Review of Systems: Right calf wound opened and now packed by surgeon and managed by patient. 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 No complaints. Vital Signs: Performed on 11/10/2024 10:58 AM BMI - 49.257 kg/m2 (high), Height - 65 in, Weight - 296 lbs, Temperature - 97.1 f, Pulse - 86 /min, Respiration - 17 /min, O2 Sat - 97 %, Pain - 0, Fatigue - 0 and BP - 159/ 82 mm(hg)(high/). Physical Exam: omitted Imaging: Radiation therapy imaging related to accurate target localization (i.e. KV, MV and CBCT) was reviewed. Appropriate changes, if any, were made to ensure treatment accuracy. Plan: God tolerance of treatment. Continue as planned. Signed by: Dr. Ashutosh Calvert 11/10/2024 11:10:01 AM
--- NOTE | 2024-11-17 12:49 | ONCRAD TMN_ITS ---
Radiation Oncology Weekly Treatment Management Patient: Madeleine Gallagher MR#: [id number] : 1975 Attending Physician: Dr. 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 ID: [id number], Energy: 6X, Dose/Fx (cGy): 400, #Fx: , Dose Correction (cGy): 0, Total Dose Delivered (cGy): 2,800, Start Date: 11/09/2024, Elapsed Days: 8 Reason for visit: The patient is being seen today as part of their regularly scheduled weekly on treatment visits to assess for acute toxicities from radiotherapy. Review of Systems: right calf lesion closing and now using less packing. No groin sxs. Vital Signs: Performed on 11/17/2024 9:01 AM BMI - 49.49 kg/m2 (high), Height - 65 in, Weight - 297.4 lbs, Temperature - 97.8 f, Pulse - 92 /min, Respiration - 18 /min, O2 Sat - 98 %, Pain - 0, Fatigue - 0 and BP - 124/ 72 mm(hg). Physical Exam: omitted Imaging: Radiation therapy imaging related to accurate target localization (i.e. KV, MV and CBCT) was reviewed. Appropriate changes, if any, were made to ensure treatment accuracy. Plan: Good tolerance of treatment. Continue as planned. Signed by: Dr. Ashutosh Calvert 11/17/2024 12:47:34 PM
--- NOTE | 2024-11-20 12:28 | N.ONRD TS_ITS ---
Radiation Oncology Treatment Summary Patient: Madeleine Gallagher MR#: [id number] : 1975 Age: 49 Sex: Female Dictated by: Dr. 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 ID: [id number], Energy: 6X, Dose/Fx (cGy): 400, #Fx: , Dose Correction (cGy): 0, Total Dose Delivered (cGy): 4,000, Start Date: 11/09/2024, End Date: 11/20/2024, Elapsed Days: 11 Clinical Summary: The patient tolerated RT well. Plan: End of treatment today. Continue on the above medication until the skin reaction resolves. Follow up in one month. Signed by: Dr. Ashutosh Calvert>11/20/2024 12:27:03 PM <<Signature on File>>
[2024-12-02 09:45] LABS: Hematocrit 37.1 % (36-47); Hemoglobin 12.10 g/dL (11.27-16.99); Mean Corpuscular HGB Conc 32.6 g/dL (30-55); Mean Corpuscular Hemoglobin 27.7 pg (27-33); Mean Corpuscular Volume 84.9 fl (85-98); Nucleated Red Blood Cells % 0 %; Platelet Count 268 10^3/cmm (157-399); Red Blood Count 4.37 10^6/uL (3.85-5.65); White Blood Count 7.42 10^3/uL (3.29-11.43)
[2024-12-02 09:57] LABS: Estmated Average Glucose 183; Hemoglobin A1C 8.0 % (4.0-6.0)
[2024-12-02 10:05] LABS: Alanine Aminotransferase 15 U/L (0-33); Albumin Level 4.0 g/dL (3.5-5.2); Alkaline Phosphatase 94 U/L (35-105); Anion Gap 17.7 (5-19); Aspartate Amino Transferase 12 U/L (0-32); Blood Urea Nitrogen 13 mg/dL (6-20); Calcium 11.0 mg/dL (8.5-10.5); Carbon Dioxide 23 mmol/L (22-29); Chloride 101 mmol/L (98-107); Cholesterol 172 mg/dL (0-200); Globulin 3.2 g/dL (1.3-4.6); Glucose 273 mg/dL (65-115); HDL Cholesterol 30 mg/dL (60-100); Osmolality Calculated 294 mOsm/kg (285-295); Potassium 4.7 mmol/L (3.5-5.1); Sodium 137 mmol/L (136-145); Total Protein 7.2 g/dL (6.6-8.7); Triglycerides 803 mg/dL (0-150)
[2024-12-02 10:16] LABS: Creatinine Urine, Random 27 mg/dL (28-217); Microalbum Creatinine Ratio Ur 37 mg/dL (0-20)
== END 2024-12-03 23:59 | disposition home or self-care (01) ==
PROVIDERS: Internal Medicine; PCP Nurse Practitioner Family; Visit Provider Radiology Radiation Oncology
DX: C43.71 Malignant melanoma of right lower limb, including hip; E11.9 Type 2 diabetes mellitus without complications; Z53.9 Procedure and treatment not carried out, unspecified reason
CPT/HCPCS: 36415; 77336; 77386; 80053; 80061; 82044; 83036; 83615; 83721; 85025

== ENCOUNTER 2025-02-10 10:42 | Oncology outpatient (recurring) (ONCR) | payer SELFPAY ==
--- NOTE | 2025-02-10 10:45 | CTR_ITS ---
PROCEDURE INFORMATION: Exam: CT Pelvis With Contrast Exam date and time: 02/10/2025 10:54 AM Age: 49 years old Clinical indication: Abnormal findings; Abnormal imaging test; Prior surgery; Surgery date: 6+ months; Surgery type: Lymph nodes removed from RT groin; Additional info: Follow up TECHNIQUE: Imaging protocol: Computed tomography of the pelvis with contrast. Radiation optimization: All CT scans at this facility use at least one of these dose optimization techniques: automated exposure control; mA and/or kV adjustment per patient size (includes targeted exams where dose is matched to clinical indication); or iterative reconstruction. Contrast material: OMNI 350; Contrast volume: 100 ml; Contrast route: INTRAVENOUS (IV); COMPARISON: PT PET WB melanoma INITIAL [id number] 08/21/2024 12:26 PM RADIATION DOSE METRICS: Total DLP (mGy-cm): 983.11 FINDINGS: Intestine: Partially visualized small and large intestines are unremarkable. Appendix: Normal. Intraperitoneal space: No free air or free fluid. Lymph nodes: No enlarged lymph nodes. Reproductive: Lobulated uterus, likely due to underlying fibroids. No adnexal mass. Urinary bladder: Unremarkable. Bones/joints: No acute osseous abnormality. Soft tissues: Incompletely visualized ovoid 4.7 x 2.5 cm (AP by TR) subcutaneous fluid density lesion with a well-defined rim in the anterior right groin at the site of the previously hypermetabolic enlarged lymph node seen on PET from 08/21/2024. No surrounding inflammatory fat stranding. CT/CT pelvis w con* [id number] IMPRESSION: 1. Incompletely visualized ovoid 4.7 x 2.5 cm subcutaneous fluid density lesion with a well-defined rim in the anterior right groin at the site of the previously hypermetabolic enlarged lymph node seen on PET from 08/21/2024. This may represent a seroma, hematoma, or abscess (less likely given lack of surrounding inflammatory fat stranding), though a recurrent centrally-necrotic malignant lymph node is not excluded. Short-term follow-up PET-CT or tissue sampling may be of value. 2. Otherwise no enlarged lymph nodes or acute finding.
[2025-02-10] MEDS: iohexol 350 mg/mL 500 mL Btl (per mL) IV (10:57)
== END 2025-03-05 23:59 | disposition home or self-care (01) ==
PROVIDERS: PCP Nurse Practitioner Family; Visit Provider Radiology Radiation Oncology
DX: C43.71 Malignant melanoma of right lower limb, including hip (principal); R93.89 Abnormal findings on diagnostic imaging of other specified body structures; M79.89 Other specified soft tissue disorders
CPT/HCPCS: 72193

== ENCOUNTER 2025-03-15 12:01 | Oncology outpatient (recurring) (ONCR) | payer SELFPAY ==
--- NOTE | 2025-03-11 09:15 | USCV_ITS ---
Madeleine Gallagher Age: 49 Gender: F : 1975 Exam Date: 03/11/2025 09:25 Ordering Phys: Maggie Sims Technologist: MARTHA Exam Location: [facility] – [place] Indication: F/U, high risk meds BP: 120 / 77 HR: Rhythm: Sinus Technical Quality: Adequate MEASUREMENTS (Male / Female) Normal Values 2D ECHO LV Diastolic Diameter PLAX 5.4 cm 4.2 - 5.9 / 3.9 - 5.3 cm IVS Diastolic Thickness 0.9 cm 0.6 - 1.0 / 0.6 - 0.9 cm IVS Systolic Thickness 1.0 cm LVPW Diastolic Thickness 0.9 cm 0.6 - 1.0 / 0.6 - 0.9 cm LVPW Systolic Thickness 1.1 cm LVOT Diameter 2.0 cm LV Ejection Fraction 2D Teich 23.6 % LV Ejection Fraction MOD 4C 63.8 % LV Ejection Fraction MOD 2C 61.7 % LV Ejection Fraction 2C AL 65.7 % LA Diameter 4.2 cm RA Systolic Volume 4C AL 35.7 ml RA Systolic Volume 4C MOD 35.5 ml LA Sys Volume AL 48.6 cm cubed LA Sys Volume Index AL 19.0 cm cubed/m squared Aorta at Sinotubular Diameter 2.6 cm M-MODE LA Ao Ratio MM 1.8 AV Cusp Separation MM 1.9 cm FINDINGS Left Ventricle Normal left ventricular size, systolic function and wall thickness, with no regional wall motion abnormalities. Left ventricular ejection fraction is estimated at 60 %. Right Ventricle Right Atrium Left Atrium IA Septum Mitral Valve Aortic Valve Tricuspid Valve Pulmonic Valve Pericardium Aorta IVC CONCLUSIONS Limited Rcho Normal left ventricular size, systolic function and wall thickness, with no regional wall motion abnormalities. Left ventricular ejection fraction is estimated at 60 %. There is no pericardial effusion. Amparo Johnston MD (Electronically Signed) Final Date: 11 March 2025 20:52 S
--- NOTE | 2025-03-15 12:05 | CT_ITS ---
WS: [id number] CT PELVIS WITH CONTRAST HISTORY: further evaluation right inguinal node (see 02/10/25 CT pelvis. TECHNIQUE: Contiguous imaging is performed of the pelvis with contrast. Coronal and sagittal reformats are reviewed. All CT scans at [facility] use at least one of these dose optimization techniques: automated exposure control; mA and/or kV adjustment per patient size (includes targeted exams where dose is matched to clinical indication); or iterative reconstruction. DLP: 977.61 mGy.cm COMPARISON: 02/10/2025, PET/CT 08/21/2024 Well-circumscribed low-attenuation soft tissue mass in the RIGHT inguinal region with enhancing wall is reidentified. Fluid collection extends over a length of 10 cm and transversely by 4.6 cm, AP 2.0 cm. Complex collection has increased in size since the PET/CT of 08/21/2024. There is associated and adjacent inflammation within the soft tissues of the pelvis. There are a few additional smaller lymph nodes identified. Varicosities are noted bilaterally in the soft tissues. There are a few very small but rounded and hyperemic lymph nodes along the RIGHT external iliac artery. Mildly enlarged fibroid uterus. No ascites. CT/CT pelvis w con* [id number] IMPRESSION: 1. Cystic mass with peripheral enhancement centered in the RIGHT inguinal bernadine on. This collection measures 4.6 x 2.0 cm and extends over a length of 10 cm. T his may be a necrotic lymph node. PET/CT positive lymph node was noted in this location on 08/21/2024. Differential includes seroma if prior biopsy or surgery was performed. This also may be a small abscess. Consider evaluation by ultraso und to further characterize. Aspiration or biopsy may be necessary for diagnosi s. 2. There are a few very small but enhancing RIGHT iliac lymph nodes. 3. Fibroid uterus.
[2025-03-15] MEDS: iohexol 350 mg/mL 500 mL Btl (per mL) IV (12:46)
== END 2025-04-04 23:59 | disposition home or self-care (01) ==
LOC: RAD 03-16 00:01
PROVIDERS: PCP Nurse Practitioner Family; Visit Provider Radiology Radiation Oncology
DX: C43.71 Malignant melanoma of right lower limb, including hip; R93.89 Abnormal findings on diagnostic imaging of other specified body structures; M79.89 Other specified soft tissue disorders; R59.0 Localized enlarged lymph nodes; D25.9 Leiomyoma of uterus, unspecified; Z53.9 Procedure and treatment not carried out, unspecified reason
CPT/HCPCS: 72193; 93308

== ENCOUNTER 2025-04-19 11:40 | Inpatient (IN) | payer SELFPAY ==
[2025-04-19] VITALS (9 sets, daily range): BP systolic 124–189; BP diastolic 63–95; PULSE 71–103; RESP 16–18; TEMP 36.4–38.2; O2SAT 93–99; BMI 48.9
--- NOTE | 2025-04-19 12:07 | ED_ITS ---
HPI - General Adult 2 General: Chief complaint: General Medical Stated complaint: Dr silverio R leg swelling, pain, fever Time Seen by Provider: 04/19/25 12:04 History of Present Illness: 49-year-old female with a history of meka anoma was removed from her right thigh about 6 months ago along with lymph node removal, obesity, hypertension, diabetes and hyperlipidemia who presents to the emergency room with right thigh cellulitis. She been placed on Keflex but has not improved. She was seen in surgery clinic today and sent to the emergency room. She has swelling of right groin under her pannus and down into her thigh. Is painful. Possible fluctuance. No systemic fevers but she does not feel well. No altered mental status. No chest pain. Related Data Home Medications ?Medication ?Instructions ?Recorded ?Confirmed metformin 1,000 mg tablet 1,000 mg PO BID 06/11/20 glimepiride 4 mg tablet 8 mg PO DAILY 01/18/2104/19 labetalol 100 mg tablet 100 mg PO BID 01/18/2104/19 simvastatin 40 mg tablet 40 mg PO QPM 08/17/24 acetaminophen 500 mg tablet 1,000 mg PO QID PRN Fever Or Pain 09/19/24 04/19/25 (Tylenol Extra Strength) ibuprofen 200 mg tablet (Advil) 600 mg PO Q6H PRN Feve r Or Pain 09/19/24 04/19/25 cyanocobalamin (vitamin B-12) 2,500 mcg sublingual [place] LY 04/19/25 04/19/25 2,500 mcg sublingual tablet (Vitamin B-12) empagliflozin 25 mg tablet 25 mg PO DAILY 04/19/25 (Jardiance) multivitamin 1 tab PO QAM 04/19/25 ondansetron HCl 4 mg tablet 4 - 8 mg PO .Q6-8H PRN Pj sea And 04/19/25 04/19/25 Vomiting Previous Rx's ?Medication ?Instructions ?Recorded trametinib 2 mg tablet (Mekinist) 2 mg PO DAILY #30 ta bs 10/01/24 dabrafenib 75 mg capsule 150 mg (2 x 75 mg) PO BID #1 20 caps 12/16/24 cephalexin 500 mg capsule 500 mg PO Q6H 10 days #40 ca ps 04/15/25 Allergies Allergy/AdvReac Type Severity Reaction Status Date / Time No Known Allergies Allergy Verified 04/19/25 11:13 Review of Systems 2 Narrative: Constitutional symptoms: Negative except as documented in HPI. Skin symptoms: Negative except as documented in HPI. Eye symptoms: Negative except as documented in HPI. ENMT symptoms: Negative except as documented in HPI. Respiratory symptoms: Negative except as documented in HPI. Cardiovascular symptoms: Negative except as documented in HPI. Gastrointestinal symptoms: Negative except as documented in HPI. Genitourinary symptoms: Negative except as documented in HPI. Musculoskeletal symptoms: Negative except as documented in HPI. Neurologic symptoms: Negative except as documented in HPI. Psychiatric symptoms: Negative except as documented in HPI. Endocrine symptoms: Negative except as documented in HPI. PFSH ED 2 PFSH: Medical History (Updated 04/19/25 @ 14:56 by Vanessa King MD) Hyperlipemia, mixed Hypertension Type 2 diabetes mellitus Family History Sister Breast cancer FH: kidney cancer Skin cancer Thyroid cancer Stroke Father Cancer kidney Mother Leukemia Social History Smoking and tobacco/nicotine status: never used tobacco/nicotine Alcohol intake: never Substance/Drug Use: never Physical Exam 2 Narrative: EXAM NARRATIVE: General: Alert, no acute distress. Skin: Warm, dry. Pain redness swelling throughout the left upper anterior groin under her pannus and down her thigh. Head: Normocephalic, atraumatic. Neck: Supple, trachea midline. Eye: Extraocular movements are intact. Ears, nose, mouth and throat: mucosa moist. Cardiovascular: Regular, Normal peripheral perfusion. Respiratory: Lungs are clear to auscultation, respirations are non-labored, breath sounds are equal, Symmetrical chest wall expansion. Gastrointestinal: Soft, Nontender, Non distended Musculoskeletal: Normal ROM, no deformity. Neurological: Alert and oriented, No focal neurological deficit observed. Psychiatric: Cooperative, appropriate mood & affect. Course 2 Vital Signs: Vital signs: Vital Signs Temperature 98.1 F 04/19/25 15:01 Pulse Rate 103 H 04/19/25 15:20 Respiratory Rate 16 04/19/25 15:01 Blood Pressure 126/86 04/19/25 15:01 Pulse Oximetry 93 04/19/25 15:20 Oxygen Delivery Me thod Room Air 04/19/25 15:20 MDM - General Adult Medical Decision Making Medical decision making Patient's reason for coming to the emergency room: Right groin pain swelling redness. Cellulitis. 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 I reviewed the patient's medical record. I reviewed Dr. Stanton's note from earlier today. He recommends lab work and imaging. 49-year-old female with a history of melanoma was removed from her right thigh about 6 months ago along with lymph node removal, obesity, hypertension, diabetes and hyperlipidemia I reviewed the patient's current home meds Patient not on any chronic anticoagulation. Alternate historians: None Differential diagnosis: including but not limited to and based on the above HPI, review of systems and physical exam: In this patient with cellulitis and possible abscess would have concern for Alejandro's gangrene or an abscess. CT ordered to evaluate. Also would have concern for sepsis. Appropriate lab work was ordered for this as well. Orders placed to evaluate differential diagnosis based on the above differential, HPI and physical exam Lab Review: Laboratory results were reviewed and interpreted by myself the emergency room physician. Some leukocytosis white count of 11.3. No anemia. No renal failure. Inflammatory markers are quite elevated. ESR is 42 but CK is very elevated at over 400. CT of the abdomen pelvis: Increasing fluid collection right inguinal region presumably in the area of prior surgery suspicion for abscess. This was reviewed and interpreted by myself the emergency room physician. I also reviewed the radiology report. Assessment of risk: Level of risk: Moderate risk patient. Multiple comorbidities. Hospitalization considerations: Patient is being admitted Reexamination: Patient remained stable. No increased work of breathing. No altered mental status. No focal motor deficits. Consultation: I spoke with Dr. Sainz who is on-call for the hospitalist service who agrees to admission. Consultation: I consulted Dr. Stanton who will follow with the patient. Elected films and recommends n.p.o. after midnight. Assessment and plan: Abscess and cellulitis of the right groin area ?IV Vanco and cefepime. No signs of sepsis. No hypotension. No tachycardia. -I discussed the patient with the hospitalist on-call who is admitting the patient. - Discussed findings and plan with patient. Answered any questions. - All laboratory values were reviewed and interpreted personally by myself, the ER physician - All imaging was reviewed and interpreted personally by myself, the ER physician. - Evaluation and treatment of this problem were appropriate in the emergency setting Lab Data 04/19/25 12:24 04/19/25 12:24 Radiology Impressions Abdomen/Pelvis CT 04/19/25 13:05 IMPRESSION: 1. Increasing fluid collection RIGHT inguinal region presumably in the area of prior surgery suspicious for abscess. Recommend correlation with infectious symptoms. Surrounding inflammatory changes with reactive lymph nodes. 2. Normal appendix. 3. Fibroid uterus. 4. Multi follicular ovaries bilaterally. Laboratory Results WBC 11.29 10^3/uL (3.29-11.43) 04/19/25 12:24 RBC 3.60 10^6/uL (3.85-5.65) L 04/19/25 12:24 Hgb 10.50 g/dL (11.27-16.99) L 04/19/25 12:24 Hct 32.2 % (36-47) L 04/19/25 12:24 MCV 89.4 fl (85-98) 04/19/25 12:24 MCH 29.2 pg (27-33) 04/19/25 12:24 MCHC 32.6 g/dL (30-55) 04/19/25 12:24 RDW 14.0 % (12.1-15.1) 04/19/25 12:24 Plt Count 454 10^3/cmm (157-399) H 04/19/25 12:24 MPV 9.1 fL (7.4-10.4) 04/19/25 12:24 Neut % (Auto) 71.4 % 04/19/25 12:24 Lymph % (Auto) 14.3 % 04/19/25 12:24 [place] % (Auto) 10.0 % 04/19/25 12:24 Eos % (Auto) 1.2 % 04/19/25 12:24 Baso % (Auto) 0.5 % 04/19/25 12:24 Neut # (Auto) 8.05 10^3/uL (1.8-7.7) H 04/19/25 12:24 Lymph # (Auto) 1.6 10^3/uL (0.8-4.8) 04/19/25 12:24 [place] # (Auto) 1.1 10^3/uL (0.2-0.9) H 04/19/25 12:24 Eos # (Auto) 0.1 10^3/uL (0.0-0.8) 04/19/25 12:24 Baso # (Auto) 0.1 10^3/uL (0.0-0.1) 04/19/25 12:24 Nucleated RBC % (auto) 0.2 % 04/19/25 12:24 Nucleated RBCs # 0.0 /100WBC 04/19/25 12:24 ESR 42 mm/hr (0-15) H 04/19/25 12:24 Sodium 134 mmol/L (136-145) L 04/19/25 12:24 Potassium 3.8 mmol/L (3.5-5.1) 04/19/25 12:24 Chloride 95 mmol/L (98-107) L 04/19/25 12:24 Carbon Dioxide 23 mmol/L (22-29) 04/19/25 12:24 Anion Gap 19.8 (5-19) H 04/19/25 12:24 BUN 11 mg/dL (6-20) 04/19/25 12:24 Creatinine 0.5 mg/dL (0.5-0.9) 04/19/25 12:24 GFR Calculation 131.7 mL/min (90-130) H 04/19/25 12:24 Glucose 153 mg/dL (65-115) H 04/19/25 12:24 Estimat Average Glucose 194 04/19/25 12:24 Hemoglobin A1c 8.4 % (4.0-6.0) H 04/19/25 12:24 Calculated Osmolality 280 mOsm/kg (285-295) L 04/19/25 12:24 Lactic Acid 0.9 mmol/L (0.5-2.2) 04/19/25 12:24 Calcium 10.6 mg/dL (8.5-10.5) H 04/19/25 12:24 Total Bilirubin 0.6 mg/dL (0.15-1.2) 04/19/25 12:24 AST 14 U/L (0-32) 04/19/25 12:24 ALT 13 U/L (0-33) 04/19/25 12:24 Alkaline Phosphatase 325 U/L (35-105) H 04/19/25 12:24 C-Reactive Protein 341.3 mg/L (0.0-4.9) H 04/19/25 12:24 Total Protein 7.6 g/dL (6.6-8.7) 04/19/25 12:24 Albumin 3.4 g/dL (3.5-5.2) L 04/19/25 12:24 Globulin 4.2 g/dL (1.3-4.6) 04/19/25 12:24 Triglycerides 262 mg/dL (0-150) H 04/19/25 12:24 Cholesterol 128 mg/dL (0-200) 04/19/25 12:24 LDL Cholesterol, Calc 63 mg/dL (50-129) 04/19/25 12:24 HDL Cholesterol 13 mg/dL (60-100) L 04/19/25 12:24 LDL/HDL Ratio 4.85 RATIO (0.00-3.22) H 04/19/25 12:24 Cholesterol/HDL Ratio 9.85 mg/dL (0.0-4.40) H 04/19/25 12:24 HCG, Qual Negative (Negative) 04/19/25 12:24 All radiology interpretation(s) finalized by discharge Discharge Plan Discharge Patient Disposition: Placed in Observation Admit Provider: Garry Sainz Clinical Impression: Cellulitis, Abscess of groin Coding Level of Care Code ED 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
[2025-04-19 12:32] LABS: Hematocrit 32.2 % (36-47); Hemoglobin 10.50 g/dL (11.27-16.99); Mean Corpuscular HGB Conc 32.6 g/dL (30-55); Mean Corpuscular Hemoglobin 29.2 pg (27-33); Mean Corpuscular Volume 89.4 fl (85-98); Nucleated Red Blood Cells % 0.2 %; Platelet Count 454 10^3/cmm (157-399); Red Blood Count 3.60 10^6/uL (3.85-5.65); White Blood Count 11.29 10^3/uL (3.29-11.43)
[2025-04-19 12:57] LABS: Alanine Aminotransferase 13 U/L (0-33); Albumin Level 3.4 g/dL (3.5-5.2); Alkaline Phosphatase 325 U/L (35-105); Anion Gap 19.8 (5-19); Aspartate Amino Transferase 14 U/L (0-32); Blood Urea Nitrogen 11 mg/dL (6-20); Calcium 10.6 mg/dL (8.5-10.5); Carbon Dioxide 23 mmol/L (22-29); Chloride 95 mmol/L (98-107); Globulin 4.2 g/dL (1.3-4.6); Glucose 153 mg/dL (65-115); Osmolality Calculated 280 mOsm/kg (285-295); Potassium 3.8 mmol/L (3.5-5.1); Sodium 134 mmol/L (136-145); Total Protein 7.6 g/dL (6.6-8.7)
[2025-04-19 12:58] LABS: Lactic Sepsis W/Reflex 0.9 mmol/L (0.5-2.2)
--- NOTE | 2025-04-19 13:05 | CT_ITS ---
WS: [id number] CT ABDOMEN PELVIS TECHNIQUE: Contrast-enhanced CT of the abdomen and pelvis with coronal and sagittal reformatted images. CLINICAL INFORMATION: r/o abscess pelvic infection COMPARISON: None. DLP: 1951.[address] scans at [facility] use at least one of these dose optimization techniques: automated exposure control; mA and/or kV adjustment per patient size (includes targeted exams where dose is matched to clinical indication); or iterative reconstruction. FINDINGS: Peripherally enhancing fluid collection in the RIGHT inguinal region presumably in the area of prior surgery compatible with postoperative seroma or abscess. Recommend correlation for infection. Surrounding induration. This is increased in size since 03/15/2025 and measures approximately 5.7 x 8.4 x 11.9 cm Hepatomegaly. Cholecystectomy. Small esophageal hiatal hernia. Fatty atrophy of the pancreas. Normal caliber abdominal aorta. Normal portal vein and splenic vein. Adrenal glands are normal. Normal renal parenchymal enhancement. No hydronephrosis. Prominent surrounding pararenal fat. Normal appendix in the RIGHT lower quadrant. Tiny fat-containing umbilical hernia. Fibroid uterus. Multi follicular ovaries bilaterally. CT/CT abdomen pelvis w con* [id number] IMPRESSION: 1. Increasing fluid collection RIGHT inguinal region presumably in the area of prior surgery suspicious for abscess. Recommend correlation with infectious sy mptoms. Surrounding inflammatory changes with reactive lymph nodes. 2. Normal appendix. 3. Fibroid uterus. 4. Multi follicular ovaries bilaterally.
--- NOTE | 2025-04-19 13:40 | PM.HP ---
Providers/Chief Complaint Admitting Physician: Dr. Sainz Primary Care Provider: ALFONSO Lazar Chief Complaint: Jesika Swenson leg swelling, pain, fever History of Present Illness Madeleine Gallagher is a 49 year old female w/ pmhx of DM2, HTN, HLD, obesity, and melanoma- w/ immunosuppression. Patient presents today to the ED via POV from office visit with Dr. Stanton w/ c/o of cellulitis of the right thigh. Patient was recently seen in oncology office w/ Dr. Gooden on 04/15 as f/u appt- she was reported at this time to have fevers, headache, nausea, and groin area was noted to be pink, swollen, and tender to the touch since 04/13. During this visit patient was dx with cellulitis of the right anterior thigh under pannus, just below her inguinal lymph node surgery scar . She was then scheduled for office visit with Dr. Stanton today, in which she was sent to ED from office visit. Patient was started on Keflex on 04/15 w/ Dr. Gooden but her condition has worsened since then. She complains of associated signs/symptoms of fever (maximum temp of 101.3), and new onset of shooting, sharp pains in her ear. Patient to be admitted to hospitalist services for continued medical management and care. While in the ED a CBC, CMP, lactic acid, CRP, ESR was obtained, reviewed and results as follows: WBC 11.23, Neut 8.05, [place] 1.1 RBC 3.60, Hgb 10.5, Hct 32.2, Plt 454. Na 132, K 3.8, Osmo 280, glucose 153, anion gap 19.8. Circus Performer 0.5, BUN 11, alk phos 325. Lactic acid 0.9, CRP 341.3, ESR 72. Blood cultures collected, pending. While in ED patient received following medications: Cefepime 2000mg IV, Vancomycin 2000 mg IV Review of Systems General: Reports: 10 or more systems reviewed and unremarkable except in HPI and below Medications/Allergies Home Medications ?Medication ?Instructions ?Recorded ?Confirmed ?Last Taken ?Type metformin 1,000 mg tablet 1,000 mg PO BID 06/11/20 04/19/25 04/18/25 History glimepiride 4 mg tablet 8 mg PO DAILY 01/18/21 04/19/25 04/18/25 History labetalol 100 mg tablet 100 mg PO BID 01/18/21 04/19/25 04/18/25 History simvastatin 40 mg tablet 40 mg PO QPM 08/17/24 04/19/25 04/18/25 History acetaminophen 500 mg tablet 1,000 mg PO QID PRN Fever Or Pain 09/19/24 04/19/25 09/19/24 09:00 History (Tylenol Extra Strength) ibuprofen 200 mg tablet (Advil) 600 mg PO Q6H PRN Fever Or Pain 09/19/24 04/19/25 09/19/24 11:00 History trametinib 2 mg tablet (Mekinist) 2 mg PO DAILY #30 tabs 10/01/24 04/19/25 04/15/25 Rx dabrafenib 75 mg capsule 150 mg (2 x 75 mg) PO BID #120 caps 12/16/24 04/19/25 04/15/25 Rx cephalexin 500 mg capsule 500 mg PO Q6H 10 days #40 caps 04/15/25 04/19/25 04/19/25 Rx cyanocobalamin (vitamin B-12) 2,500 mcg sublingual DAILY 04/19/25 04/19/25 04/18/25 History 2,500 mcg sublingual tablet (Vitamin B-12) empagliflozin 25 mg tablet 25 mg PO DAILY 04/19/25 04/19/25 04/18/25 History (Jardiance) multivitamin 1 tab PO QAM 04/19/25 04/19/25 04/18/25 History ondansetron HCl 4 mg tablet 4 - 8 mg PO .Q6-8H PRN Nausea And 04/19/25 04/19/25 Unknown History Vomiting Allergies Allergy/AdvReac Type Severity Reaction Status Date / Time No Known Allergies Allergy Verified 04/19/25 11:13 PFSH Acute PFSH: Medical History (Updated 04/19/25 @ 16:53 by Ariella Saez NP) Hyperlipemia, mixed Hypertension Type 2 diabetes mellitus Family History Sister Breast cancer FH: kidney cancer Skin cancer Thyroid cancer Stroke Father Cancer kidney Mother Leukemia Social History (Reviewed 04/19/25 @ 11:18 by LALITO Holloway Smoking and tobacco/nicotine status: never used tobacco/nicotine Alcohol intake: never Substance/Drug Use: never Vitals/I&O/Wt Last Vital Signs Temp 98.4 F 04/19/25 11:59 Pulse 100 04/19/25 11:59 Resp 18 04/19/25 11:59 BP 154/90 04/19/25 11:59 Pulse Ox 95 04/19/25 11:59 O2 Del Method Room Air 04/19/25 11:59 Weight last 48 hrs Weight 133.356 kg Physical Exam Narrative: General: A&Ox4x4, ambulating in room. No family noted to be at bedside. HEENT: Normo-cephalic, atraumatic, grossly unremarkable exam Cardio: NSR, normal S1-S2 w/o any murmurs, rubs, or gallops and JVD normal Respiratory:Clear breathing on auscultation w/o any wheezes, stridor, rhonchi GI: Abd soft, non-tender, non-distended, normo-active bowel sounds present Neuro: Moves all extremities, no sensory deficits, Normal speech Behavior: Appropriate and cooperative Extremities: Cellulitis to right anterior thigh, under pannus- just below her inguinal lymph node surgery scar. [place], swollen, tender to the touch. Adequate palpable pulses. No clubbing, cyanosis or edema, Full ROM Data 04/19/25 12:24 04/19/25 12:24 Other Labs: 04/19: Abd/Pelvis: reviewed and results as follows: Increasing fluid collection RIGHT inguinal region presumably in the area of prior surgery suspicious for abscess. Recommend correlation with infectious symptoms. Surrounding inflammatory changes with reactive lymph nodes. Normal appendix. Fibroid uterus. Multi follicular ovaries bilaterally. Micro: Microbiology 04/19/25 12:24 Blood Culture - Preliminary Blood SPECIMEN COLLECTED 04/19/25 12:24 Blood Culture - Preliminary Blood SPECIMEN COLLECTED A&P Assessment and plan 1. Cellulitis of right lower extremity: 2. Type 2 diabetes mellitus without complication, without long-term current use of insulin: 3. Abscess of groin: 4. Hyperlipemia, mixed: 5. Primary hypertension: Plan: Cellulitis ? Cellulitis to right anterior thigh, under pannus- just below her inguinal lymph node surgery scar. ? [place], swollen, tender to the touch. Pt w/ fever, and pain. ? 04/19: Abd/Pelvis: Increasing fluid collection RIGHT inguinal region presumably in the area of prior surgery suspicious for abscess. Recommend correlation with infectious symptoms. Surrounding inflammatory changes with reactive lymph nodes. Normal appendix. Fibroid uterus. Multi follicular ovaries bilaterally. ? Lactic acid 0.9, CRP 341.3, ESR 72. ? Blood cultures ordered, pending. ? MRSA swab ordered, pending. Patient immunocompromised. ? Marked the borders of erythremia to monitor progression and response to therapy. ? General Surgeon consulted-Dr. Stanton. Expertise and recommendations appreciated. ? NPO at midnight for possible I&D with Dr. Stanton. ? Continue IV abx of vancomycin, cefepime pt's w/ diabetes and obesity have been shown to lower early response to abx. ? Pain analgesic as needed. Melanoma ? Hold home medication trametinib 2mg PO dly, dabrafenib 150mg PO-per oncologist recommendations DM2 ? A1c ordered, 8.1% ? Blood glucose monitoring, ACHS ? Low regimen sliding scale ? Hypoglycemic protocol ? Carb consistent diet ? Hold home medication metformin 1000mg PO, glimepiride 4mg PO dly ? Continue home medication Empagliflozin 25mg PO dly HTN ? Continue home medication labetalol 100 mg PO BID ? Monitor vital signs per protocol HLD ? Lipid panel reviewed:Cholesterol 128, LDL 63, HDL 13, LDL/HDL ratio 4.85, cholesterol/HDL ratio 9.85 ? Continue home medication simvastatin 40 mg PO dly ? F/u outpatient w/ PCP CODE STATUS: Full Code VTE prophylaxis: Lovenox 40mg SC dly PDMP PDMP Reviewed: Not Reviewed Attestations Medical Necessity Statement*: Admitted under inpatient status. Given complexity of patient's presentation, cellulitis, co-morbid conditions, and required intensity of treatment, a hospitalization exceeding two midnights is anticipated. and High Time for a total of 76 minutes, includes reviewing past or interval history, examining/interviewing patient, placing orders, counseling patient/family/other support, updating patient/family/other support, discussing plan of care with staff, communicating with other healthcare providers, documenting encounter and coordinating care Diagnoses Cellulitis of right lower extremity L03.115 Site of cellulitis: extremity Site of cellulitis of extremity: lower extremity Laterality: right Type 2 diabetes mellitus without complication, without long-term current use of insulin E11.9 Diabetes mellitus terminal superintendent insulin use: without chcf use Diabetes mellitus complication status: without complication Abscess of groin L02.214 Hyperlipemia, mixed E78.2 Primary hypertension I10 Hypertension type: primary hypertension
[2025-04-19] MEDS: cefepime 2,000 mg SDV 2000 MG IVP (13:43)
[2025-04-19 13:48] LABS: HCG, Serum Qual Negative (Negative)
--- NOTE | 2025-04-19 14:06 | PC.NURSE ---
Patient to CT. Patient updated that CT must be read prior to admit
[2025-04-19] MEDS: iohexol 350 mg/mL 500 mL Btl (per mL) IV (14:10)
[2025-04-19 14:11] LABS: Estmated Average Glucose 194; Hemoglobin A1C 8.4 % (4.0-6.0)
[2025-04-19 14:12] LABS: Cholesterol 128 mg/dL (0-200); HDL Cholesterol 13 mg/dL (60-100); Triglycerides 262 mg/dL (0-150)
--- NOTE | 2025-04-19 14:33 | PM.CONSULT ---
Providers/Reason For Consult Consulting Physician/Specialty*: Dr. Stanton general surgery Reason for Consult*: Right groin abscess Primary Care Provider: ALFONSO Lazar History of Present Illness History of Present Illness Madeleine Gallagher is a 49 year old female who underwent right lower extremity wide local excision of melanoma with right groin lymph node dissection. Patient developed a seroma which was asymptomatic. She was seen multiple weeks later in clinic yesterday for cellulitis over the right thigh that extended over the right groin where the old seroma was located. Patient was sent to the ER for IV antibiotics and admission. CT scan showed the same fluid collection that was present several weeks ago which now likely represents an infected seroma. She is immunosuppressed on biologicals for melanoma. Medications/Allergies Home Medications ?Medication ?Instructions ?Recorded ?Confirmed ?Last Taken ?Type metformin 1,000 mg tablet 1,000 mg PO BID 06/11/20 04/19/25 04/18/25 History glimepiride 4 mg tablet 8 mg PO DAILY 01/18/21 04/19/25 04/18/25 History labetalol 100 mg tablet 100 mg PO BID 01/18/21 04/19/25 04/18/25 History simvastatin 40 mg tablet 40 mg PO QPM 08/17/24 04/19/25 04/18/25 History acetaminophen 500 mg tablet 1,000 mg PO QID PRN Fever Or Pain 09/19/24 04/19/25 09/19/24 09:00 History (Tylenol Extra Strength) ibuprofen 200 mg tablet (Advil) 600 mg PO Q6H PRN Fever Or Pain 09/19/24 04/19/25 09/19/24 11:00 History trametinib 2 mg tablet (Mekinist) 2 mg PO DAILY #30 tabs 10/01/24 04/19/25 04/15/25 Rx dabrafenib 75 mg capsule 150 mg (2 x 75 mg) PO BID #120 caps 12/16/24 04/19/25 04/15/25 Rx cephalexin 500 mg capsule 500 mg PO Q6H 10 days #40 caps 04/15/25 04/19/25 04/19/25 Rx cyanocobalamin (vitamin B-12) 2,500 mcg sublingual DAILY 04/19/25 04/19/25 04/18/25 History 2,500 mcg sublingual tablet (Vitamin B-12) empagliflozin 25 mg tablet 25 mg PO DAILY 04/19/25 04/19/25 04/18/25 History (Jardiance) multivitamin 1 tab PO QAM 04/19/25 04/19/25 04/18/25 History ondansetron HCl 4 mg tablet 4 - 8 mg PO .Q6-8H PRN Nausea And 04/19/25 04/19/25 Unknown History Vomiting Allergies Allergy/AdvReac Type Severity Reaction Status Date / Time No Known Allergies Allergy Verified 04/19/25 11:13 Current Medications Generic Name Dose Route Start Last Admin Trade Name Freq PRN Reason Stop Dose Admin Vancomycin HCl 2,000 mg in 400 mls @ 200 mls/hr 04/19/25 12:51 04/19/25 13:44 Vancocin IV 04/19/25 14:50 200 mls/hr ONCE ONE Administration Protocol PFSH Acute PFSH: Medical History (Updated 04/19/25 @ 16:53 by Ariella Saez NP) Hyperlipemia, mixed Hypertension Type 2 diabetes mellitus Family History Sister Breast cancer FH: kidney cancer Skin cancer Thyroid cancer Stroke Father Cancer kidney Mother Leukemia Social History Smoking and tobacco/nicotine status: never used tobacco/nicotine Alcohol intake: never Substance/Drug Use: never Vitals/I&O/Wt Last Vital Signs Temp 98.9 F 04/19/25 14:02 Pulse 77 04/19/25 14:02 Resp 16 04/19/25 14:02 BP 136/65 04/19/25 14:02 Pulse Ox 99 04/19/25 14:02 O2 Del Method Room Air 04/19/25 14:02 Weight last 48 hrs Weight 294 lb Physical Exam Narrative: Chest: Unlabored breathing room air. No lymphadenopathy. Heart: Regular rate and rhythm. Abdomen: Soft, nontender, nondistended. No masses or lymphadenopathy. Right groin and thigh cellulitis. Area of fluctuance is about 8 x 4 cm. Data 04/20/25 04:45 04/20/25 04:45 Micro: Microbiology 04/19/25 12:24 Blood Culture - Preliminary Blood SPECIMEN COLLECTED 04/19/25 12:24 Blood Culture - Preliminary Blood SPECIMEN COLLECTED A&P Assessment and plan 1. Abscess of groin: Plan: 49-year-old female history of melanoma who underwent right lower extremity wide local excision of melanoma and right groin lymphadenectomy. Now presents with right groin and thigh cellulitis possibly involving the old seroma that was asymptomatic prior. Will plan for IV antibiotics and incision and drainage of abscess tomorrow pending response to antibiotics. PDMP PDMP Reviewed: Not Reviewed Coding Level of Care Code 93451 Diagnoses Abscess of groin L02.214
--- NOTE | 2025-04-19 14:33 | PM.MISC ---
Miscellaneous Note Note: I reviewed the ct imaging (read pending). I had already seen the patient today in clinic. Agree with admission to medicine, IV antibiotics, NPO after midnight for possible I&D. Discussed with Dr. King. Full consult note to follow
--- NOTE | 2025-04-19 14:55 | PC.NURSE ---
awaiting official CT read out before admit
[2025-04-19] MEDS: ATORVASTATIN 20 MG TABLET PO (17:44)
--- NOTE | 2025-04-19 20:33 | PHA.VACGOAL ---
Vancomycin Goal - Goal Vancomycin Goal:: 10-15 mg/L Vancomycin Indication:: SSTI - Therapy Current therapy:: Cefepime Day of therpy:: Day []of [] . Actual body weight (kg): 133.356 kg - Data Labs: WBC 11.29 10^3/uL (3.29-11.43) 04/19/25 12:24 RBC 3.60 10^6/uL (3.85-5.65) L 04/19/25 12:24 Hgb 10.50 g/dL (11.27-16.99) L 04/19/25 12:24 Hct 32.2 % (36-47) L 04/19/25 12:24 MCV 89.4 fl (85-98) 04/19/25 12:24 MCH 29.2 pg (27-33) 04/19/25 12:24 MCHC 32.6 g/dL (30-55) 04/19/25 12:24 RDW 14.0 % (12.1-15.1) 04/19/25 12:24 Sodium 134 mmol/L (136-145) L 04/19/25 12:24 Potassium 3.8 mmol/L (3.5-5.1) 04/19/25 12:24 Chloride 95 mmol/L (98-107) L 04/19/25 12:24 Carbon Dioxide 23 mmol/L (22-29) 04/19/25 12:24 Anion Gap 19.8 (5-19) H 04/19/25 12:24 BUN 11 mg/dL (6-20) 04/19/25 12:24 Creatinine 0.5 mg/dL (0.5-0.9) 04/19/25 12:24 GFR Calculation 131.7 mL/min (90-130) H 04/19/25 12:24 Treatment plan:: new consult Regimen:: New start vancomycin for cellulitis. No prior vancomycin history found. 2000 mg load dose given in the ER. Started on maintenance dose of 1500 mg q8h.
[2025-04-20] VITALS (18 sets, daily range): BP systolic 109–141; BP diastolic 61–87; PULSE 77–95; RESP 16–37; TEMP 36.2–37.3; O2SAT 92–97
[2025-04-20] MEDS: cefepime 2,000 mg SDV 2000 MG IVP (00:44)
[2025-04-20 02:43] LABS: MRSA PCR OZH (swab) NOT DETECTED (Not Detecte)
[2025-04-20 05:36] LABS: Hematocrit 28.1 % (36-47); Hemoglobin 8.90 g/dL (11.27-16.99); Mean Corpuscular HGB Conc 31.7 g/dL (30-55); Mean Corpuscular Hemoglobin 28.5 pg (27-33); Mean Corpuscular Volume 90.1 fl (85-98); Nucleated Red Blood Cells % 0.2 %; Platelet Count 437 10^3/cmm (157-399); Red Blood Count 3.12 10^6/uL (3.85-5.65); White Blood Count 10.49 10^3/uL (3.29-11.43)
[2025-04-20 06:02] LABS: Alanine Aminotransferase 13 U/L (0-33); Albumin Level 2.9 g/dL (3.5-5.2); Alkaline Phosphatase 327 U/L (35-105); Anion Gap 17.9 (5-19); Aspartate Amino Transferase 12 U/L (0-32); Blood Urea Nitrogen 10 mg/dL (6-20); Calcium 9.8 mg/dL (8.5-10.5); Carbon Dioxide 23 mmol/L (22-29); Chloride 100 mmol/L (98-107); Globulin 3.4 g/dL (1.3-4.6); Glucose 220 mg/dL (65-115); Magnesium 1.7 mg/dL (1.7-2.3); Osmolality Calculated 290 mOsm/kg (285-295); Potassium 3.9 mmol/L (3.5-5.1); Sodium 137 mmol/L (136-145); Total Protein 6.3 g/dL (6.6-8.7)
--- NOTE | 2025-04-20 11:40 | P.PN_ITS ---
Subjective 2 Subjective: Right groin fluctuance present Cellulitis about the same Vitals/I&O/Wt Last Vital Signs Temp 99.1 F 04/20/25 07:49 Pulse 95 04/20/25 09:16 Resp 16 04/20/25 07:49 BP 119/67 04/20/25 07:49 Pulse Ox 94 04/20/25 09:16 O2 Del Method Room Air 04/20/25 09:16 04/19/25 04/20/25 04/20/25 22:59 06:59 14:59 Intake Total 2100 / 2100 300 / 2400 300 / 300 Output Total 1000 / 1000 700 / 700 Balance 1100 / 1100 300 / 1400 -400 / -400 Weight last 48 hrs Weight 297 lb 6 oz Weight 294 lb Weight 294 lb Physical Exam 2 Narrative: Chest: Unlabored breathing room air. No lymphadenopathy. Heart: Regular rate and rhythm. Abdomen: Soft, nontender, nondistended. No masses or lymphadenopathy. Right groin: Area of fluctuance about 6 x 4 cm. Overlying cellulitis about the same as yesterday Data 04/20/25 04:45 04/20/25 04:45 Micro: Microbiology 04/19/25 12:24 Blood Culture - Preliminary Blood SPECIMEN COLLECTED 04/19/25 12:24 Blood Culture - Preliminary Blood SPECIMEN COLLECTED A&P Assessment and plan 1. Abscess of groin: Plan: 49-year-old female who was admitted with a right groin abscess and cellulitis. Continue IV antibiotics. I had an extensive discussion with the patient and answered all questions. I have discussed non operative/non procedural options and the patient still decides to proceed. Discussed risks and benefits of right groin incision and drainage of abscess and patient decides to proceed. Patient understands the risks include bleeding, infection, wound complications. Patient understands that she is going to have to pack the wound for several weeks. She agrees to proceed. She understands that since she is on treatment for melanoma her ability to heal is impaired. PDMP PDMP Reviewed: Not Reviewed Attestations 2 Medical Necessity Statement*: N/A Coding Level of Care Code 04199 Diagnoses Abscess of groin L02.214
--- NOTE | 2025-04-20 12:16 | ANES.PREANE2 ---
Pre-Anesthetic Assessment Height/Weight: Height 5 ft 5 in Weight 297 lb 6 oz Temp Pulse Resp BP Pulse Ox O2 Del Method 97.7 F 84 16 123/66 95 Room Air 04/20/25 11:44 04/20/25 11:44 04/20/25 11:44 04/20/25 11:44 04/20/25 11:44 04/20/25 11:44 Preop Diagnosis: Groin infection Operation Date: 04/20/25 14:40 Proposed Procedures p Incision And Drainage-Groin(Right) - Lexx Stanton MD Was Beta Sapna taken within 24 hours: Yes Was Clonidine taken within 24 hours: N/A Last intake: Intake Last Liquid Date 04/19/25 Last Liquid Time 23:00 Last Solid Date 04/19/25 Last Solid Time 20:00 Social No alcohol and No tobacco Exam alert, oriented x 3, clear to auscultation bilaterally and regular rate & rhythm Airway Submandibular: within normal limits Cervical ROM: within normal limits Mallampati: Class III Comments: Comments: Edentulous Anesthetic Plan ASA status: 3 Anesthesia: General Other: History of PONV, requiring promethazine in PACU last procedure with us Patient initially presented to the ED on 04/19/2025 with a right groin infection History of hypertension on labetalol Type 2 diabetes, preop BS Labs reviewed from today, hemoglobin 8.9 Echo performed 03/11/2025 showing EF of 60% with no RWMA Plan for general anesthesia with LMA and TIVA Medications/Allergies Home Medications ?Medication ?Instructions ?Recorded ?Confirmed ?Last Taken ?Type metformin 1,000 mg tablet 1,000 mg PO BID 06/11/20 04/19/25 04/18/25 History glimepiride 4 mg tablet 8 mg PO DAILY 01/18/21 04/19/25 04/18/25 History labetalol 100 mg tablet 100 mg PO BID 01/18/21 04/19/25 04/18/25 History simvastatin 40 mg tablet 40 mg PO QPM 08/17/24 04/19/25 04/18/25 History acetaminophen 500 mg tablet 1,000 mg PO QID PRN Fever Or Pain 09/19/24 04/19/25 09/19/24 09:00 History (Tylenol Extra Strength) ibuprofen 200 mg tablet (Advil) 600 mg PO Q6H PRN Fever Or Pain 05/17/25 12/15/25 05/17/25 11:00 History trametinib 2 mg tablet (Mekinist) 2 mg PO DAILY #30 tabs 10/01/24 04/19/25 04/15/25 Rx dabrafenib 75 mg capsule 150 mg (2 x 75 mg) PO BID #120 caps 12/16/24 04/19/25 04/15/25 Rx cephalexin 500 mg capsule 500 mg PO Q6H 10 days #40 caps 04/15/25 04/19/25 04/19/25 Rx cyanocobalamin (vitamin B-12) 2,500 mcg sublingual DAILY 04/19/25 04/19/25 04/18/25 History 2,500 mcg sublingual tablet (Vitamin B-12) empagliflozin 25 mg tablet 25 mg PO DAILY 04/19/25 04/19/25 04/18/25 History (Jardiance) multivitamin 1 tab PO QAM 04/19/25 04/19/25 04/18/25 History ondansetron HCl 4 mg tablet 4 - 8 mg PO .Q6-8H PRN Nausea And 04/19/25 04/19/25 Unknown History Vomiting Allergies Allergy/AdvReac Type Severity Reaction Status Date / Time No Known Allergies Allergy Verified 04/19/25 11:13 Current Medications Generic Name Dose Route Start Last Admin Trade Name Freq PRN Reason Stop Dose Admin Acetaminophen 650 mg 04/19/25 13:40 04/20/25 09:09 Acetaminophen 325 Mg Tablet PO 650 mg Q6H PRN Administration Mild/Mod Pain Or Temp >/= 101 Atorvastatin Calcium 20 mg 04/19/25 17:00 04/19/25 17:44 Atorvastatin 20 Mg Tablet PO 20 mg QPM ROMULO Administration Cefepime HCl 2,000 mg 04/20/25 01:00 04/20/25 00:44 Cefepime 2,000 Mg Sdv IVP 2,000 mg Q12H ROMULO Administration Protocol Enoxaparin Sodium 40 mg 04/19/25 14:00 04/19/25 16:41 Enoxaparin 40 Mg/0.4 Ml Syringe SUBCUT 40 mg On Hold: 04/19/25 20:31 Q24H ROMULO Administration Vancomycin HCl 1,500 mg in 300 mls @ 200 mls/hr 04/19/25 22:00 04/20/25 08:04 Vancocin IV Infused Q8H ROMULO Infusion Insulin Human Lispro 0 unit 04/19/25 18:00 04/20/25 11:56 Insulin Lispro 100 Unit/1 Ml SUBCUT Not Given WM&BEDTIME ROMULO Protocol Labetalol HCl 100 mg 04/19/25 17:00 04/20/25 05:48 Labetalol 200 Mg Tablet PO 100 mg BID ROMULO Administration PFSH Anesthesia Medical History (Updated 04/19/25 @ 16:53 by Ariella Saez NP) Hyperlipemia, mixed Hypertension Type 2 diabetes mellitus Family History Sister Breast cancer FH: kidney cancer Skin cancer Thyroid cancer Stroke Father Cancer kidney Mother Leukemia Social History Smoking and tobacco/nicotine status: never used tobacco/nicotine Alcohol intake: never Substance/Drug Use: never Data Anesthesia 04/20/25 04:45 04/20/25 04:45 Short CBC 04/19/25 04/20/25 Range/Units 12:24 04:45 WBC 11.29 10.49 (3.29-11.43) 10^3/uL Hgb 10.50 L 8.90 L (11.27-16.99) g/dL Hct 32.2 L 28.1 L (36-47) % MCV 89.4 90.1 (85-98) fl Plt Count 454 H 437 H (157-399) 10^3/cmm Neut % (Auto) 71.4 67.4 % Neut # (Auto) 8.05 H 7.06 (1.8-7.7) 10^3/uL BMP 04/19/25 04/20/25 12:24 04:45 Sodium 134 L 137 Potassium 3.8 3.9 Chloride 95 L 100 Carbon Dioxide 23 23 BUN 11 10 Creatinine 0.5 0.4 L Glucose 153 H 220 H Calcium 10.6 H 9.8 Liver Function 04/19/25 04/20/25 Range/Units 12:24 04:45 Total Bilirubin 0.6 0.5 (0.15-1.2) mg/dL AST 14 12 (0-32) U/L ALT 13 13 (0-33) U/L Alkaline Phosphatase 325 H 327 H (35-105) U/L Albumin 3.4 L 2.9 L (3.5-5.2) g/dL Coags 04/19/25 12:24 ESR 42 H C-Reactive Protein 341.3 H Microbiology 04/19/25 12:24 Blood Culture - Preliminary Blood SPECIMEN COLLECTED 04/19/25 12:24 Blood Culture - Preliminary Blood SPECIMEN COLLECTED Cardiac Studies: Echocardiogram 10/22/24 Echocardiogram Limited Views 03/11/25
--- NOTE | 2025-04-20 12:47 | PC.NURSE ---
Patient taken to surgery. Cefepime and Vanc. given to pacu nurse for patient.
--- NOTE | 2025-04-20 12:49 | PC.NURSE ---
to surgery at this time
[2025-04-20] MEDS: insulin regular-human 100 units/1 mL 5 UNIT IVP (13:19)
--- NOTE | 2025-04-20 14:04 | PM.OP ---
Operative Report Date of procedure: April 20, 2025 Pre-op diagnosis: Right groin abscess Post-op diagnosis: same Post-op findings: Right groin abscess. Cavity measured 12 x 4 x 4 cm. Sent cultures. Adequate hemostasis achieved using electrocautery. Washed out the cavity using 1 L of normal saline and diluted peroxide. Healthy wound base at end of case. Procedure done: Right groin incision and drainage of abscess Implants: N/A Specimens removed/disposition: Culture sent Pathology: none sent Surgeon: Lexx Stanton MD Fibrous Wallboard Inspector: N/A Anesthesia: General Estimated blood loss (mL): 10 Complications: N/A Findings: Right groin abscess. Cavity measured 12 x 4 x 4 cm. Sent cultures. Adequate hemostasis achieved using electrocautery. Washed out the cavity using 1 L of normal saline and diluted peroxide. Healthy wound base at end of case. Condition: stable Disposition: floor Brief History: 49-year-old female who presented with a right groin abscess and cellulitis. Discussed risk and benefits and patient agreed to proceed with incision and drainage of right groin abscess. Procedure: Consent obtained in preop area. SCDs on and working. Scheduled antibiotics administered. The right groin was prepped and draped in usual sterile fashion. An 8 cm incision was carried out with a scalpel over the point of maximal fluctuance. Approximately 100 cc of purulent fluid was evacuated. Cultures were obtained. The wound base was debrided sharply down to healthy bleeding tissues. The cavity measured approximately 12 x 4 x 4 cm. The cavity was washed out with 1 L normal saline and diluted peroxide. The cavity was packed using 1 whole Kerlix moistened with Betadine. Dry gauze was applied on top. The patient woke up from anesthesia without any complications.
--- NOTE | 2025-04-20 14:41 | ANE.PACU2 ---
Inpatient post-anesthesia follow up: Airway intact: Yes Vital signs: Temperature 97.8 F Pulse Rate 84 Respiratory Rate 18 Blood Pressure 125/65 Pulse Oximetry 95 Oxygen Delivery Me thod [ Room Air Current Rate & Del trung] Oxygen Delivery Me thod Room Air Oxygen Flow Rate Fraction of Inspir ed Oxygen Hydration adequate: Yes Nausea and vomiting: No Pain level: 1 Mental status: Baseline
[2025-04-20] MEDS: ondansetron 2 mg/ML SDV 2 mL 4 MG IVP (15:45)
[2025-04-20] MEDS: ATORVASTATIN 20 MG TABLET PO (17:33)
--- NOTE | 2025-04-20 17:53 | P.PN_ITS ---
Subjective 2 Subjective: She is doing well this morning. Awaiting her surgery. Denies chest pain or pressure. Denies shortness of breath with exertion. No exertional chest pain. Denies any prior issues with anesthesia. Vitals/I&O/Wt Last Vital Signs Temp 97.8 F 04/20/25 16:50 Pulse 84 04/20/25 16:50 Resp 18 04/20/25 16:50 BP 125/65 04/20/25 16:50 Pulse Ox 95 04/20/25 16:50 O2 Del Method Room Air 04/20/25 16:50 04/20/25 04/20/25 04/20/25 06:59 14:59 22:59 Intake Total 300 / 2400 350 / 350 300 / 650 Output Total 710 / 710 200 / 910 Balance 300 / 1400 -360 / -360 100 / -260 Weight last 48 hrs Weight 134.887 kg Weight 133.356 kg Weight 133.356 kg Physical Exam 2 Const: COMMON NORMALS: patient oriented x3 and alert GENERAL APPEARANCE: c ooperative ORIENTATION/CONSCIOUSNESS: Yes awake HENMT: COMMON NORMALS: oropharynx normal Neck/C-Spine: COMMON NORMALS: no JVD Resp: COMMON NORMALS: normal respiratory effort and clear to auscultation bilaterally AUSCULTATION: clear to auscultation bilaterally Cardio: COMMON NORMALS: no JVD, regular rhythm, S1 normal heart sound present, S2 normal heart sound present and No murmurs present (Cardio) RHYTHM: regular rhythm HEART SOUNDS: S1 normal heart sound present and S2 normal heart sound present GI: COMMON NORMALS: Normal to inspection, nondistended, normoactive bowel sounds present, Soft to palpation and non-tender PALPATION: Yes Soft to palpation Extremity: COMMON NORMALS: no joint enlargement and no pedal edema OTHER: Area of erythema and swelling on the right proximal anteromedial thigh extending from mid thigh to under the pannus. Without any ulceration, drainage, blisters. Neuro: COMMON NORMALS: patient oriented x3 and moves all extremities S ENSORIUM/ORIENTATION: Yes alert Data 04/20/25 04:45 04/20/25 04:45 Micro: Microbiology 04/19/25 12:24 Blood Culture - Preliminary Blood NEGATIVE TO DATE 04/19/25 12:24 Blood Culture - Preliminary Blood NEGATIVE TO DATE A&P Assessment and plan 1. Cellulitis of right lower extremity: 2. Type 2 diabetes mellitus without complication, without long-term current use of insulin: 3. Abscess of groin: 4. Hyperlipemia, mixed: 5. Primary hypertension: Plan: Cellulitis and abscess with failed outpatient therapy I&D by surgery today. Continue IV antibiotics. Discussed with the surgeon. Discussed with nursing, family caseworker. Continue cefepime and vancomycin, monitor for risk of encephalopathy with cefepime, risk of GISSELLE with vancomycin. Risk of C. difficile. Follow-up in operative cultures.Reviewed CBC, chemistry. ? Reviewed blood cultures ordered, pending. ? MRSA swab ordered, reviewed, negative. Patient immunocompromised. ? Marked the borders of erythremia to monitor progression and response to therapy. - Acetaminophen for mild pain, add ibuprofen as needed for moderate pain, morphine as needed for severe breakthrough. Low magnesium: Will give 1 g magnesium. Recheck level. Melanoma ? Hold home medication trametinib 2mg PO dly, dabrafenib 150mg PO-per oncologist recommendations DM2 ? A1c ordered, 8.1% ? Blood glucose monitoring, ACHS ? Low regimen sliding scale ? Hypoglycemic protocol ? Carb consistent diet ? Hold home medication metformin 1000mg PO, glimepiride 4mg PO dly ? Continue home medication Empagliflozin 25mg PO dly HTN ? Continue home medication labetalol 100 mg PO BID ? Monitor vital signs per protocol HLD ? Lipid panel reviewed:Cholesterol 128, LDL 63, HDL 13, LDL/HDL ratio 4.85, cholesterol/HDL ratio 9.85 ? Continue home medication simvastatin 40 mg PO dly ? F/u outpatient w/ PCP CODE STATUS: Full Code VTE prophylaxis: Lovenox 40mg SC dly PDMP PDMP Reviewed: Not Reviewed Attestations 2 Medical Necessity Statement*: Continue management of cellulitis and large abscess with failed outpatient therapy in a lady with DM 2 and additional comorbidities. and High MDM includes amount and/or complexity of data reviewed/ordered [ resulted lab(s)/test(s), ordered lab(s)/test(s) and other healthcare professional discussion] and described risk of complication, morbidity or mortality of management as documented Diagnoses Cellulitis of right lower extremity L03.115 Laterality: right Site of cellulitis: extremity Site of cellulitis of extremity: lower extremity Type 2 diabetes mellitus without complication, without long-term current use of insulin E11.9 Diabetes mellitus intermission coordinator insulin use: without [facility] use Diabetes mellitus complication status: without complication Abscess of groin L02.214 Hyperlipemia, mixed E78.2 Primary hypertension I10 Hypertension type: primary hypertension
[2025-04-20] MEDS: magnesium sulfate premix 1 GM/100 ML PIGGYBACK IV (18:08)
[2025-04-21] MEDS: cefepime 2,000 mg SDV 2000 MG IVP ×2 (00:56→12:16)
[2025-04-21 04:00] VITALS: BP 134/78; PULSE 82; RESP 16; TEMP 36.6; O2SAT 96
[2025-04-21 05:27] LABS: Hematocrit 29.7 % (36-47); Hemoglobin 9.30 g/dL (11.27-16.99); Mean Corpuscular HGB Conc 31.3 g/dL (30-55); Mean Corpuscular Hemoglobin 28.7 pg (27-33); Mean Corpuscular Volume 91.7 fl (85-98); Platelet Count 541 10^3/cmm (157-399); Red Blood Count 3.24 10^6/uL (3.85-5.65); White Blood Count 9.36 10^3/uL (3.29-11.43)
[2025-04-21 05:53] LABS: Alanine Aminotransferase 12 U/L (0-33); Albumin Level 3.0 g/dL (3.5-5.2); Alkaline Phosphatase 317 U/L (35-105); Anion Gap 15.7 (5-19); Aspartate Amino Transferase 11 U/L (0-32); Blood Urea Nitrogen 8 mg/dL (6-20); Calcium 10.3 mg/dL (8.5-10.5); Carbon Dioxide 26 mmol/L (22-29); Chloride 98 mmol/L (98-107); Globulin 3.6 g/dL (1.3-4.6); Glucose 237 mg/dL (65-115); Magnesium 1.8 mg/dL (1.7-2.3); Osmolality Calculated 288 mOsm/kg (285-295); Potassium 3.7 mmol/L (3.5-5.1); Sodium 136 mmol/L (136-145); Total Protein 6.6 g/dL (6.6-8.7)
[2025-04-21 06:12] LABS: Slide Review Slide Review Perform
[2025-04-21 06:15] LABS: Absolute Segmented Neutrophil 5.9 10/cmm (1.6-7.1); Atypical Lymphs 1.0 % (0-5); Band Neutrophils Absolute 0.5 10^3/cmm (0.0-1.2); Total Cells Counted 100 (0-100)
[2025-04-21 07:57] VITALS: BP 109/69; PULSE 71; RESP 16; TEMP 36.8; O2SAT 93
--- NOTE | 2025-04-21 08:49 | P.PN_ITS ---
Subjective 2 Subjective: No acute events overnight Afebrile Feels better Cellulitis improved Packing changed. Wound base is clean Vitals/I&O/Wt Last Vital Signs Temp 98.2 F 04/21/25 07:57 Pulse 71 04/21/25 07:57 Resp 16 04/21/25 07:57 BP 109/69 04/21/25 07:57 Pulse Ox 93 04/21/25 07:57 O2 Del Method Room Air 04/21/25 07:57 04/20/25 04/21/25 04/21/25 22:59 06:59 14:59 Intake Total 1480 / 1830 660 / 2490 900 / 900 Output Total 1700 / 2410 3000 / 5410 Balance -220 / -580 -2340 / -2920 900 / 900 Weight last 48 hrs Weight 297 lb 6 oz Weight 297 lb 6 oz Weight 294 lb Weight 294 lb Physical Exam 2 Narrative: Chest: Unlabored breathing room air. No lymphadenopathy. Heart: Regular rate and rhythm. Abdomen: Soft, nontender, nondistended. No masses or lymphadenopathy. Right groin: Packing change. Wound base is clean. Cellulitis improved. Data 04/21/25 04:26 04/21/25 04:26 Micro: Microbiology 04/19/25 12:24 Blood Culture - Preliminary Blood NEGATIVE TO DATE 04/19/25 12:24 Blood Culture - Preliminary Blood NEGATIVE TO DATE A&P Assessment and plan 1. Abscess of groin: Plan: 49-year-old female who presented with a right groin abscess. Status post incision and drainage of abscess. Packing changed. Treated with IV antibiotics. Cellulitis improved but still present. From a surgical perspective okay for daily dressing changes by patient. Recommend a 14-day course of antibiotic with MRSA coverage. This was discussed with the hospitalist and the nurse. She can follow-up in 1 week for wound check. Rest of care per hospitalist. PDMP PDMP Reviewed: Not Reviewed Attestations 2 Medical Necessity Statement*: N/A Coding Level of Care Code 46452 Diagnoses Abscess of groin L02.214
[2025-04-21 11:59] VITALS: BP 135/72; PULSE 71; RESP 18; TEMP 36.5; O2SAT 98
--- NOTE | 2025-04-21 13:32 | PM.PN ---
Subjective Subjective: She is doing better this morning. This afternoon he is having some pain. Needing pain medication. Vitals/I&O/Wt Last Vital Signs Temp 97.7 F 04/21/25 11:59 Pulse 71 04/21/25 11:59 Resp 18 04/21/25 11:59 BP 135/72 04/21/25 11:59 Pulse Ox 98 04/21/25 11:59 O2 Del Method Room Air 04/21/25 11:59 04/20/25 04/21/25 04/21/25 22:59 06:59 14:59 Intake Total 1480 / 1830 660 / 2490 1140 / 1140 Output Total 1700 / 2410 3000 / 5410 Balance -220 / -580 -2340 / -2920 1140 / 1140 Weight last 48 hrs Weight 134.887 kg Weight 134.887 kg Weight 133.356 kg Physical Exam Const: COMMON NORMALS: patient oriented x3 and alert GENERAL APPEARANCE: cooperative ORIENTATION/CONSCIOUSNESS: Yes awake HENMT: COMMON NORMALS: oropharynx normal Neck/C-Spine: COMMON NORMALS: no JVD Resp: COMMON NORMALS: normal respiratory effort and clear to auscultation bilaterally AUSCULTATION: clear to auscultation bilaterally Cardio: COMMON NORMALS: no JVD, regular rhythm, S1 normal heart sound present, S2 normal heart sound present and No murmurs present (Cardio) RHYTHM: regular rhythm HEART SOUNDS: S1 normal heart sound present and S2 normal heart sound present GI: COMMON NORMALS: Normal to inspection, nondistended, normoactive bowel sounds present, Soft to palpation and non-tender PALPATION: Yes Soft to palpation Extremity: COMMON NORMALS: no joint enlargement and no pedal edema OTHER: Status post I&D of abscess with wound repacked this morning, new dressing in place. Area of erythema and swelling on the right proximal anteromedial thigh extending from mid thigh to under the pannus. Without any ulceration, drainage, blisters. Neuro: COMMON NORMALS: patient oriented x3 and moves all extremities SENSORIUM/ORIENTATION: Yes alert Data 04/21/25 04:26 04/21/25 04:26 Micro: Microbiology 04/19/25 12:24 Blood Culture - Preliminary Blood NEGATIVE TO DATE 04/19/25 12:24 Blood Culture - Preliminary Blood NEGATIVE TO DATE A&P Assessment and plan 1. Cellulitis of right lower extremity: 2. Type 2 diabetes mellitus without complication, without long-term current use of insulin: 3. Abscess of groin: 4. Hyperlipemia, mixed: 5. Primary hypertension: Plan: Cellulitis and abscess with failed outpatient therapy Status post I&D by surgery. Per discussion with the surgeon wound repacked today. Continue IV antibiotics. Discussed with nursing, case coordinator. Continue cefepime and vancomycin, monitor for risk of encephalopathy with cefepime, risk of GISSELLE with vancomycin. Risk of C. difficile. Reviewed CBC with noted left shift. 1% atypical lymphs. Send peripheral smear. Reviewed blood culture. Follow wound culture. ? MRSA swab ordered negative. Patient immunocompromised. - Erythema without expansion beyond marked borders - Acetaminophen for mild pain, add ibuprofen as needed for moderate pain, morphine as needed for severe breakthrough. Low magnesium: Will give 1 g magnesium. Recheck level. Melanoma ? Hold home medication trametinib 2mg PO dly, dabrafenib 150mg PO-per oncologist recommendations DM2 ? A1c ordered, 8.1% ? Blood glucose monitoring, ACHS ? Low regimen sliding scale ? Hypoglycemic protocol ? Carb consistent diet ? Hold home medication metformin 1000mg PO, glimepiride 4mg PO dly ? Continue home medication Empagliflozin 25mg PO dly HTN ? Continue home medication labetalol 100 mg PO BID ? Monitor vital signs per protocol HLD ? Lipid panel reviewed:Cholesterol 128, LDL 63, HDL 13, LDL/HDL ratio 4.85, cholesterol/HDL ratio 9.85 ? Continue home medication simvastatin 40 mg PO dly ? F/u outpatient w/ PCP CODE STATUS: Full Code VTE prophylaxis: Lovenox 40mg SC dly PDMP PDMP Reviewed: Not Reviewed Attestations Medical Necessity Statement*: Continue management of cellulitis and large abscess with failed outpatient therapy in a lady with DM 2 and additional comorbidities. 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
[2025-04-21 14:53] LABS: LAB Peripheral Smear Sent for Review
[2025-04-21 16:00] VITALS: BP 138/78; PULSE 70; RESP 18; TEMP 36.6; O2SAT 95
[2025-04-21] MEDS: HYDROcodone-acetaminophen 5-325 mg Tablet 1 TAB PO (16:41)
[2025-04-21] MEDS: ATORVASTATIN 20 MG TABLET PO (16:41)
[2025-04-21 20:00] VITALS: BP 146/85; PULSE 73; RESP 16; TEMP 36.6; O2SAT 95
[2025-04-22] VITALS: BP 127/72; PULSE 74; RESP 15; TEMP 36.4; O2SAT 95
[2025-04-22] MEDS: cefepime 2,000 mg SDV 2000 MG IVP ×2 (01:20→13:38)
[2025-04-22 04:00] VITALS: BP 144/87; PULSE 80; RESP 16; TEMP 36.3; O2SAT 95
[2025-04-22 05:18] LABS: Hematocrit 30.2 % (36-47); Hemoglobin 9.50 g/dL (11.27-16.99); Mean Corpuscular HGB Conc 31.5 g/dL (30-55); Mean Corpuscular Hemoglobin 28.8 pg (27-33); Mean Corpuscular Volume 91.5 fl (85-98); Nucleated Red Blood Cells % 0 %; Platelet Count 493 10^3/cmm (157-399); Red Blood Count 3.30 10^6/uL (3.85-5.65); White Blood Count 7.51 10^3/uL (3.29-11.43)
[2025-04-22 05:19] VITALS: BMI 49.8
[2025-04-22 05:48] LABS: Slide Review Slide Review Perform
[2025-04-22 05:59] LABS: Alanine Aminotransferase 12 U/L (0-33); Albumin Level 3.0 g/dL (3.5-5.2); Alkaline Phosphatase 273 U/L (35-105); Aspartate Amino Transferase 11 U/L (0-32); Blood Urea Nitrogen 8 mg/dL (6-20); Calcium 10.1 mg/dL (8.5-10.5); Carbon Dioxide 25 mmol/L (22-29); Chloride 101 mmol/L (98-107); Globulin 2.7 g/dL (1.3-4.6); Glucose 293 mg/dL (65-115); Magnesium 1.6 mg/dL (1.7-2.3); Osmolality Calculated 289 mOsm/kg (285-295); Sodium 135 mmol/L (136-145); Total Protein 5.7 g/dL (6.6-8.7)
[2025-04-22 06:09] LABS: Anion Gap 13.6 (5-19); Potassium 4.6 mmol/L (3.5-5.1)
[2025-04-22] MEDS: HYDROcodone-acetaminophen 5-325 mg Tablet 1 TAB PO ×2 (06:36→10:44)
[2025-04-22 07:19] VITALS: BP 123/59; PULSE 73; TEMP 36.7; O2SAT 95
[2025-04-22] MEDS: magnesium sulfate premix 4 GM/100 ML PREMIX IV (07:47)
[2025-04-22 10:51] VITALS: BP 125/75; PULSE 74; RESP 16; TEMP 36.8; O2SAT 97
[2025-04-22 15:30] VITALS: BP 130/87; PULSE 70; RESP 16; TEMP 36.9; O2SAT 95
--- NOTE | 2025-04-22 15:31 | P.PN_ITS ---
Subjective 2 Subjective: No acute events overnight Cellulitis improving Packing changed Wound clean Vitals/I&O/Wt Last Vital Signs Temp 98.5 F 04/22/25 15:30 Pulse 70 04/22/25 15:30 Resp 16 04/22/25 15:30 BP 130/87 04/22/25 15:30 Pulse Ox 95 04/22/25 15:30 O2 Del Method Room Air 04/22/25 15:30 04/22/25 04/22/25 04/22/25 06:59 14:59 22:59 Intake Total 420 / 2100 880 / 880 300 / 1180 Output Total 0 / 2500 Balance 420 / -400 880 / 880 300 / 1180 Weight last 48 hrs Weight 299 lb 8 oz Weight 297 lb 6 oz Physical Exam 2 Narrative: Chest: Unlabored breathing room air. No lymphadenopathy. Heart: Regular rate and rhythm. Abdomen: Soft, nontender, nondistended. No masses or lymphadenopathy. Right groin: Wound clean. Packing changed. Cellulitis improved. Data 04/22/25 05:04 04/22/25 05:04 Micro: Microbiology 04/20/25 13:54 Gram Stain - Final Groin Wound Culture - Preliminary Coag positive Staphylococcus A&P Assessment and plan 1. Abscess of groin: Plan: 49-year-old female status post I&D of right groin abscess. Packing changed. Wound clean. Cellulitis improved. Rest of care per hospitalist. Daily packing changes by nurse and patient was discharged. Follow-up 1 week after discharge with general surgery. PDMP PDMP Reviewed: Not Reviewed Attestations 2 Medical Necessity Statement*: N/A Coding Level of Care Code 78824 Diagnoses Abscess of groin L02.214
[2025-04-22] MEDS: ATORVASTATIN 20 MG TABLET PO (16:22)
--- NOTE | 2025-04-22 17:18 | PM.PN ---
Subjective Subjective: Improving. Vitals/I&O/Wt Last Vital Signs Temp 98.5 F 04/22/25 15:30 Pulse 70 04/22/25 15:30 Resp 16 04/22/25 15:30 BP 130/87 04/22/25 15:30 Pulse Ox 95 04/22/25 15:30 O2 Del Method Room Air 04/22/25 15:30 04/22/25 04/22/25 04/22/25 06:59 14:59 22:59 Intake Total 420 / 2100 880 / 880 300 / 1180 Output Total 0 / 2500 Balance 420 / -400 880 / 880 300 / 1180 Weight last 48 hrs Weight 135.851 kg Weight 134.887 kg Physical Exam Const: COMMON NORMALS: patient oriented x3 and alert GENERAL APPEARANCE: cooperative ORIENTATION/CONSCIOUSNESS: Yes awake HENMT: COMMON NORMALS: oropharynx normal Neck/C-Spine: COMMON NORMALS: no JVD Resp: COMMON NORMALS: normal respiratory effort and clear to auscultation bilaterally AUSCULTATION: clear to auscultation bilaterally Cardio: COMMON NORMALS: no JVD, regular rhythm, S1 normal heart sound present, S2 normal heart sound present and No murmurs present (Cardio) RHYTHM: regular rhythm HEART SOUNDS: S1 normal heart sound present and S2 normal heart sound present GI: COMMON NORMALS: Normal to inspection, nondistended, normoactive bowel sounds present, Soft to palpation and non-tender PALPATION: Yes Soft to palpation Extremity: COMMON NORMALS: no joint enlargement and no pedal edema OTHER: Status post I&D of abscess with wound repacked this morning, new dressing in place. Area of erythema and swelling on the right proximal anteromedial thigh extending from mid thigh to under the pannus. Without any ulceration, drainage, blisters. Neuro: COMMON NORMALS: patient oriented x3 and moves all extremities SENSORIUM/ORIENTATION: Yes alert Data 04/22/25 05:04 04/22/25 05:04 Micro: Microbiology 04/20/25 13:54 Gram Stain - Final Groin Wound Culture - Final Staphylococcus aureus A&P Assessment and plan 1. Cellulitis of right lower extremity: 2. Type 2 diabetes mellitus without complication, without long-term current use of insulin: 3. Abscess of groin: 4. Hyperlipemia, mixed: 5. Primary hypertension: Plan: Cellulitis and abscess with failed outpatient therapy Reevaluated, improving erythema. Still induration, area slightly smaller. But still large area affected in the proximal anteromedial thigh. Wound repacked. Discussed with the surgeon. Continue IV antibiotic for today, reassess, reevaluate. Discussed with nursing, correctional case records supervisor. Status post I&D by surgery. Per discussion with the surgeon wound repacked today. Continue IV antibiotics. Discussed with nursing, correctional case records supervisor. Continue cefepime and vancomycin, monitor for risk of encephalopathy with cefepime, risk of GISSELLE with vancomycin. Risk of C. difficile. Reviewed CBC with noted left shift. 1% atypical lymphs. Send peripheral smear. Reviewed blood culture. Follow wound culture. ? MRSA swab ordered negative. Patient immunocompromised. - Erythema without expansion beyond marked borders - Acetaminophen for mild pain, add ibuprofen as needed for moderate pain, morphine as needed for severe breakthrough. Low magnesium: Low again. Replace additional magnesium 4 g. Recheck level. Melanoma ? Hold home medication trametinib 2mg PO dly, dabrafenib 150mg PO-per oncologist recommendations DM2 ? A1c ordered, 8.1% ? Blood glucose monitoring, ACHS ? Low regimen sliding scale ? Hypoglycemic protocol ? Carb consistent diet ? Hold home medication metformin 1000mg PO, glimepiride 4mg PO dly ? Continue home medication Empagliflozin 25mg PO dly HTN ? Continue home medication labetalol 100 mg PO BID ? Monitor vital signs per protocol HLD ? Lipid panel reviewed:Cholesterol 128, LDL 63, HDL 13, LDL/HDL ratio 4.85, cholesterol/HDL ratio 9.85 ? Continue home medication simvastatin 40 mg PO dly ? F/u outpatient w/ PCP CODE STATUS: Full Code VTE prophylaxis: Lovenox 40mg SC dly PDMP PDMP Reviewed: Not Reviewed Attestations Medical Necessity Statement*: Continue management of cellulitis and large abscess with failed outpatient therapy in a lady with DM 2 and additional comorbidities. and High MDM includes amount and/or complexity of data reviewed/ordered [ resulted lab(s)/test(s), ordered lab(s)/test(s) and other healthcare professional discussion] and described risk of complication, morbidity or mortality of management as documented Diagnoses Cellulitis of right lower extremity L03.115 Laterality: right Site of cellulitis: extremity Site of cellulitis of extremity: lower extremity Type 2 diabetes mellitus without complication, without long-term current use of insulin E11.9 Diabetes mellitus m[facility] insulin use: without watermelon inspector use Diabetes mellitus complication status: without complication Abscess of groin L02.214 Hyperlipemia, mixed E78.2 Primary hypertension I10 Hypertension type: primary hypertension
[2025-04-22 20:00] VITALS: BP 142/78; PULSE 81; RESP 18; TEMP 36.4; O2SAT 96
[2025-04-23] VITALS: BP 132/70; PULSE 70; RESP 15; TEMP 36.6; O2SAT 96
[2025-04-23] MEDS: cefepime 2,000 mg SDV 2000 MG IVP (00:36)
[2025-04-23 04:00] VITALS: BP 134/67; PULSE 75; RESP 16; TEMP 36.6; O2SAT 96
[2025-04-23 04:54] LABS: Hematocrit 30.8 % (36-47); Hemoglobin 9.50 g/dL (11.27-16.99); Mean Corpuscular HGB Conc 30.8 g/dL (30-55); Mean Corpuscular Hemoglobin 28.6 pg (27-33); Mean Corpuscular Volume 92.8 fl (85-98); Nucleated Red Blood Cells % 0 %; Platelet Count 463 10^3/cmm (157-399); Red Blood Count 3.32 10^6/uL (3.85-5.65); White Blood Count 6.19 10^3/uL (3.29-11.43)
[2025-04-23 05:16] LABS: Anion Gap 14.4 (5-19); Blood Urea Nitrogen 8 mg/dL (6-20); Calcium 10.2 mg/dL (8.5-10.5); Carbon Dioxide 25 mmol/L (22-29); Chloride 100 mmol/L (98-107); Glucose 284 mg/dL (65-115); Magnesium 1.6 mg/dL (1.7-2.3); Osmolality Calculated 289 mOsm/kg (285-295); Potassium 4.4 mmol/L (3.5-5.1); Sodium 135 mmol/L (136-145)
[2025-04-23 05:29] VITALS: BMI 50.0
[2025-04-23 05:34] LABS: Slide Review Slide Review Perform
[2025-04-23 06:27] VITALS: BP 137/69; PULSE 67; O2SAT 96
[2025-04-23] MEDS: magnesium sulfate premix 4 GM/100 ML PREMIX IV (07:49)
[2025-04-23 07:52] VITALS: BP 128/70; PULSE 67; RESP 15; TEMP 36.7; O2SAT 96
[2025-04-23 09:26] VITALS: BP 128/70; PULSE 67; RESP 15; TEMP 36.6; O2SAT 96
[2025-04-23 11:19] VITALS: BP 121/65; PULSE 65; RESP 17; TEMP 36.4; O2SAT 97
[2025-04-23] MEDS: HYDROcodone-acetaminophen 5-325 mg Tablet 1 TAB PO (11:23)
--- NOTE | 2025-04-23 12:59 | P.DS_ITS ---
Discharge Providers Date of Admission: 04/19/25 14:57 Date of Discharge: April 23, 2025 Attending Provider at Admission: Garry Sainz Attending Provider at Discharge: Garry Sainz Primary Care Provider: ALFONSO Lazar Diagnoses at Discharge Discharge Diagnosis 1. Cellulitis of right lower extremity: 2. Type 2 diabetes mellitus without complication, without long-term current use of insulin: 3. Abscess of groin: 4. Hyperlipemia, mixed: 5. Primary hypertension: Reason for Visit Reason for Visit: Jesika Swenson leg swelling, pain, fever Brief History: Madeleine Gallagher is a 49 year old female w/ pmhx of DM2, HTN, HLD, obesity, and melanoma- w/ immunosuppression. Patient presents today to the ED via POV from office visit with Dr. Stanton w/ c/o of cellulitis of the right thigh. Patient was recently seen in oncology office w/ Dr. Gooden on 04/15 as f/u appt- she was reported at this time to have fevers, headache, nausea, and groin area was noted to be pink, swollen, and tender to the touch since 04/13. During this visit patient was dx with cellulitis of the right anterior thigh under pannus, just below her inguinal lymph node surgery scar . She was then scheduled for office visit with Dr. Stanton today, in which she was sent to ED from office visit. Patient was started on Keflex on 04/15 w/ Dr. Gooden but her condition has worsened since then. She complains of associated signs/symptoms of fever (maximum temp of 101.3), and new onset of shooting, sharp pains in her ear. Patient to be admitted to hospitalist services for continued medical management and care. While in the ED a CBC, CMP, lactic acid, CRP, ESR was obtained, reviewed and results as follows: WBC 11.23, Neut 8.05, [place] 1.1 RBC 3.60, Hgb 10.5, Hct 32.2, Plt 454. Na 132, K 3.8, Osmo 280, glucose 153, anion gap 19.8. Heat Treater Helper 0.5, BUN 11, alk phos 325. Lactic acid 0.9, CRP 341.3, ESR 72. Blood cultures collected, pending. While in ED patient received following medications: Cefepime 2000mg IV, Vancomycin 2000 mg IV Hospital Course Hospital Course Underwent I&D of abscess. Treated with vancomycin and cefepime. Cultures growing MSSA. Was educated by surgery on wound packing, dressing changes to continue after discharge with follow-up in 1 week. Has 6 days left on cephalexin prescription, given 5 additional days. Physical Exam Const: COMMON NORMALS: patient oriented x3 and alert GENERAL APPEARANCE: cooperative ORIENTATION/CONSCIOUSNESS: Yes awake HENMT: COMMON NORMALS: oropharynx normal Neck/C-Spine: COMMON NORMALS: no JVD Resp: COMMON NORMALS: normal respiratory effort and clear to auscultation bilaterally AUSCULTATION: clear to auscultation bilaterally Cardio: COMMON NORMALS: no JVD, regular rhythm, S1 normal heart sound present, S2 normal heart sound present and No murmurs present (Cardio) RHYTHM: regular rhythm HEART SOUNDS: S1 normal heart sound present and S2 normal heart sound present GI: COMMON NORMALS: Normal to inspection, nondistended, normoactive bowel sounds present, Soft to palpation and non-tender PALPATION: Yes Soft to palpation Extremity: COMMON NORMALS: no joint enlargement and no pedal edema OTHER: Status post I&D of abscess with wound repacked this morning, new dressing in place. Area of erythema and swelling on the right proximal anteromedial thigh extending from mid thigh to under the pannus. Without any ulceration, drainage, blisters. Neuro: COMMON NORMALS: patient oriented x3 and moves all extremities SENSORIUM/ORIENTATION: Yes alert Discharge Data Studies Completed and Pending Completed Studies During Hospitalization Category Date Time Status CT abdomen pelvis w con* [id number] Stat Cat Scan 04/19/25 13:05 Completed Pending at discharge Category Date Time Status Anaerobic Culture Routine Lab 04/20/25 13:54 Results Basic Metabolic Panel AM LABS Lab 04/24/25 04:00 Ordered Basic Metabolic Panel AM LABS Lab 04/25/25 04:00 Ordered Blood Culture Stat Lab 04/19/25 12:24 Results Complete Blood Count w/Auto AM LABS Lab 04/24/25 04:00 Ordered Complete Blood Count w/Auto AM LABS Lab 04/25/25 04:00 Ordered Wound Culture and Gram Stain Routine Lab 04/20/25 13:54 Results Radiology Impressions Abdomen/Pelvis CT 04/19/25 13:05 IMPRESSION: 1. Increasing fluid collection RIGHT inguinal region presumably in the area of prior surgery suspicious for abscess. Recommend correlation with infectious symptoms. Surrounding inflammatory changes with reactive lymph nodes. 2. Normal appendix. 3. Fibroid uterus. 4. Multi follicular ovaries bilaterally. Laboratory Results WBC 6.19 10^3/uL (3.29-11.43) 04/23/25 04:16 RBC 3.32 10^6/uL (3.85-5.65) L 04/23/25 04:16 Hgb 9.50 g/dL (11.27-16.99) L 04/23/25 04:16 Hct 30.8 % (36-47) L 04/23/25 04:16 MCV 92.8 fl (85-98) 04/23/25 04:16 MCH 28.6 pg (27-33) 04/23/25 04:16 MCHC 30.8 g/dL (30-55) 04/23/25 04:16 RDW 13.8 % (12.1-15.1) 04/23/25 04:16 Plt Count 463 10^3/cmm (157-399) H 04/23/25 04:16 MPV 8.9 fL (7.4-10.4) 04/23/25 04:16 Neut % (Auto) 54.1 % 04/23/25 04:16 Lymph % (Auto) 27.3 % 04/23/25 04:16 [place] % (Auto) 8.7 % 04/23/25 04:16 Eos % (Auto) 2.1 % 04/23/25 04:16 Baso % (Auto) 1.0 % 04/23/25 04:16 Neut # (Auto) 3.35 10^3/uL (1.8-7.7) 04/23/25 04:16 Lymph # (Auto) 1.7 10^3/uL (0.8-4.8) 04/23/25 04:16 [place] # (Auto) 0.5 10^3/uL (0.2-0.9) 04/23/25 04:16 Eos # (Auto) 0.1 10^3/uL (0.0-0.8) 04/23/25 04:16 Baso # (Auto) 0.1 10^3/uL (0.0-0.1) 04/23/25 04:16 Nucleated RBC % (auto) 0 % 04/23/25 04:16 Total Counted 100 (0-100) 04/21/25 04:26 Atypical Lymphs % 1.0 % (0-5) 04/21/25 04:26 Absolute Neutrophils 6.4 10^3/cmm (1.4-6.5) 04/21/25 04:26 Segmented Neutrophils 63 % 04/21/25 04:26 Band Neutrophils 5.0 % 04/21/25 04:26 Absolute Lymphocytes 1.9 10^3/cmm (1.2-3.4) 04/21/25 04:26 Lymphocytes (Manual) 19 % 04/21/25 04:26 Monocytes (Manual) 6.0 % 04/21/25 04:26 Absolute Monocytes 0.6 10^3/cmm (0.1-0.6) 04/21/25 04:26 Eosinophils (Manual) 5 % 04/21/25 04:26 Absolute Eosinophils 0.5 10^3/cmm (0.0-0.7) 04/21/25 04:26 Basophils (Manual) 0.0 % 04/21/25 04:26 Absolute Basophils 0.0 10^3/cmm (0.0-0.2) 04/21/25 04:26 Myelocytes 1.0 % 04/21/25 04:26 Nucleated RBCs # 0.0 /100WBC 04/23/25 04:16 Platelet Estimate Increased (Normal) H 04/21/25 04:26 Peripher Smr Path Cons Sent for review 04/21/25 04:26 ESR 42 mm/hr (0-15) H 04/19/25 12:24 Sodium 135 mmol/L (136-145) L 04/23/25 04:16 Potassium 4.4 mmol/L (3.5-5.1) 04/23/25 04:16 Chloride 100 mmol/L (98-107) 04/23/25 04:16 Carbon Dioxide 25 mmol/L (22-29) 04/23/25 04:16 Anion Gap 14.4 (5-19) 04/23/25 04:16 BUN 8 mg/dL (6-20) 04/23/25 04:16 Creatinine 0.4 mg/dL (0.5-0.9) L 04/23/25 04:16 GFR Calculation 170.4 mL/min (90-130) H 04/23/25 04:16 Glucose 284 mg/dL (65-115) H 04/23/25 04:16 POC Glucose 283 mg/dL (70-110) H 04/23/25 11:10 Estimat Average Glucose 194 04/19/25 12:24 Hemoglobin A1c 8.4 % (4.0-6.0) H 04/19/25 12:24 Calculated Osmolality 289 mOsm/kg (285-295) 04/23/25 04:16 Lactic Acid 0.9 mmol/L (0.5-2.2) 04/19/25 12:24 Calcium 10.2 mg/dL (8.5-10.5) 04/23/25 04:16 Magnesium 1.6 mg/dL (1.7-2.3) L 04/23/25 04:16 Total Bilirubin 0.2 mg/dL (0.15-1.2) 04/22/25 05:04 AST 11 U/L (0-32) 04/22/25 05:04 ALT 12 U/L (0-33) 04/22/25 05:04 Alkaline Phosphatase 273 U/L (35-105) H 04/22/25 05:04 C-Reactive Protein 341.3 mg/L (0.0-4.9) H 04/19/25 12:24 Total Protein 5.7 g/dL (6.6-8.7) L 04/22/25 05:04 Albumin 3.0 g/dL (3.5-5.2) L 04/22/25 05:04 Globulin 2.7 g/dL (1.3-4.6) 04/22/25 05:04 Triglycerides 262 mg/dL (0-150) H 04/19/25 12:24 Cholesterol 128 mg/dL (0-200) 04/19/25 12:24 LDL Cholesterol, Calc 63 mg/dL (50-129) 04/19/25 12:24 HDL Cholesterol 13 mg/dL (60-100) L 04/19/25 12:24 LDL/HDL Ratio 4.85 RATIO (0.00-3.22) H 04/19/25 12:24 Cholesterol/HDL Ratio 9.85 mg/dL (0.0-4.40) H 04/19/25 12:24 HCG, Qual Negative (Negative) 04/19/25 12:24 Nasal MRSA (PCR) Not detected (Not Detecte) 04/20/25 00:51 Vancomycin Trough 14.5 ug/mL (02-17) 04/22/25 05:04 Vitals Last Vital Signs Temp 97.5 F L 04/23/25 11:19 Pulse 65 04/23/25 11:19 Resp 17 04/23/25 11:19 BP 121/65 04/23/25 11:19 Pulse Ox 97 04/23/25 11:19 O2 Del Method Room Air 04/23/25 11:19 Discharge Plan Discharge Patient Disposition: Home Condition: Stable Prescriptions: New cephalexin 500 mg capsule 500 mg PO BID 5 Days Qty: 10 0RF Continued metformin 1,000 mg tablet 1,000 mg PO BID labetalol 100 mg tablet 100 mg PO BID glimepiride 4 mg tablet 8 mg PO DAILY Mekinist 2 mg tablet 2 mg PO DAILY Qty: 30 11RF Rx Instructions: must be taken on empty stomach, at least 1 hr before or 2-3 hrs after meal/ food simvastatin 40 mg tablet 40 mg PO QPM dabrafenib 75 mg capsule 150 mg PO BID Qty: 120 11RF Rx Instructions: administer approximately 12 hours apart acetaminophen [Tylenol Extra Strength] 500 mg Tablet 1,000 mg PO QID PRN (Reason: Fever Or Pain) ibuprofen [Advil] 200 mg Tablet 600 mg PO Q6H PRN (Reason: Fever Or Pain) multivitamin Tablet 1 tab PO QAM cyanocobalamin (vitamin B-12) [Vitamin B-12] 2,500 mcg Tablet, Sublingual 2,500 mcg SUBLINGUAL DAILY ondansetron HCl 4 mg tablet 4 - 8 mg PO .Q6-8H PRN (Reason: Nausea And Vomiting) Jardiance 25 mg tablet 25 mg PO DAILY Discontinued cephalexin 500 mg capsule 500 mg PO Q6H 10 Days Qty: 40 0RF Discharge Order = DC NOW: Discharge Order (Routine); Ordered 04/23/25 Ordered By: Garry Sainz Referrals: Lexx Stanton MD [Physician, General Surgery] - 05/03/25 8:00 am Referral Note: Guera Hawk FNP [Primary Care Provider, Nurse Practitioner] - 05/03/25 10:30 am Referral Note: If this appointment time does not work for you please call your provider to reschedule. Discharge Diet: Cardiac and Diabetic Patient Instructions: Acute Wound Care (DC), Opioid Safety, Post Anesthesia Care, Patient Portal & Maddy Instructions Activity Restrictions/Additional Instructions: Dressing change: Pack wound with 1 inch [place] packing and cover with ABD. Secure with tape. Change dressing daily. Continue cephalexin, a new 10-day supply has been sent over to the pharmacy. Continue to optimize diabetes, continue strict consistent carbohydrate diet. Target blood glucose 100-150. As discussed, seek medical attention in case of any worsening or new concerning symptoms. 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
== END 2025-04-23 13:06 | disposition home or self-care (01) | DRG 571 ==
LOC: ER 13:32 → MEDSURG 15:02
PROVIDERS: Emergency Medicine; Student in an Organized Health Care Education/Training Program; Admitting Provider Internal Medicine; Emergency Provider Emergency Medicine; PCP Nurse Practitioner Family; Visit Provider Internal Medicine
PROC: 0JBC0ZZ Excision of Pelvic Region Subcutaneous Tissue and Fascia, Open Approach (ICD-10-PCS; principal; 2025-04-20 14:30)
DX: L03.314 Cellulitis of groin (principal); D84.821 Immunodeficiency due to drugs; L03.115 Cellulitis of right lower limb; Z68.43 Body mass index [BMI] 50.0-59.9, adult; B95.61 Methicillin susceptible Staphylococcus aureus infection as the cause of diseases classified elsewhere; E11.9 Type 2 diabetes mellitus without complications; L02.214 Cutaneous abscess of groin; E78.2 Mixed hyperlipidemia; I10 Essential (primary) hypertension; E66.9 Obesity, unspecified; C43.71 Malignant melanoma of right lower limb, including hip; T45.1X5A Adverse effect of antineoplastic and immunosuppressive drugs, initial encounter; E83.42 Hypomagnesemia; Z79.84 Long term (current) use of oral hypoglycemic drugs; Z82.3 Family history of stroke
CPT/HCPCS: 36415; 36416; 74177; 80048; 80053; 80061; 80202; 80503; 82962; 83036; 83605; 83735; 84703; 85007; 85025; 85651; 86140; 87040; 87070; 87075; 87077; 87186; 87205; 96365; 96367; 96372; 99285; 99291; 99292; J0692; J1650; J1815; J2405; J2704; J3010; J3372; J3373; J3475; J7030; J9999